=== PATIENT | male | born 1945 | race Caucasian/White ===

== ENCOUNTER 2017-03-03 14:18 | Inpatient (IN) | payer MEDICARE, MEDICAID ==
[2017-03-03 15:46] LABS: EOS # 0.2 K/uL (0.0-0.7); LYMPH # 1.1 K/uL (1.0-4.3); MONO # 0.5 K/uL (0.0-0.8)
[2017-03-03 15:49] LABS: BASO # 0.1 K/uL (0.0-0.2); BASO % 1.1 % (0.0-2.0); EOS % 3.5 % (0.0-4.0); LYMPH % 15.9 % (20.0-40.0); MEAN CORPUSCULAR HEMOGLOBIN 16.9 pg (27.0-31.0); MEAN CORPUSCULAR HGB CONC 29.6 g/dL (33.0-37.0); MEAN PLATELET VOLUME 8.4 fL (7.2-11.7); MONO % 8.1 % (0.0-10.0); NEUT # 4.8 K/uL (1.8-7.0); NEUT % 71.4 % (50.0-75.0); RBC 3.35 Mil/uL (4.40-5.90); RED CELL DISTRIBUTION WIDTH 19.4 % (11.5-14.5); WHITE BLOOD COUNT 6.8 K/uL (4.8-10.8)
[2017-03-03 15:51] LABS: HEMOGLOBIN 5.7 g/dL (12.0-18.0)
[2017-03-03 15:52] LABS: MEAN CELL VOLUME 57.3 fL (80.0-94.0); PROTHROMBIN TIME 11.5 SECONDS (9.7-12.2)
[2017-03-03 16:02] LABS: ALBUMIN 3.2 g/dL (3.5-5.0)
[2017-03-03 16:06] LABS: CALCIUM 8.2 mg/dl (8.6-10.4)
--- NOTE | 2017-03-03 16:53 | C.PDOC ---
History Of Present Illness Pt was sent in by his PMD Dr. Huizar due to low hemoglobin. Time Seen by Provider: 03/03/17 14:42 Chief Complaint (Nursing): Abnormal Labs History Per: Patient, Fashion Designer, Other (PMD) History/Exam Limitations: language barrier Onset/Duration Of Symptoms: Days (about 3-4 weeks) Current Symptoms Are (Timing): Still Present Possible Causative Factor(s): Lightheaded W/Exertion Fall Associated With With Symptoms: No Severity: Moderate - Symptoms Of CVA Recent Head Trauma: No Past Medical History Reviewed: Historical Data, Nursing Documentation, Vital Signs Vital Signs: Last Vital Signs Temp 97.7 F 03/03/17 14:38 Pulse 61 03/03/17 14:38 Resp 17 03/03/17 14:38 BP 167/77 H 03/03/17 14:38 Pulse Ox 100 03/03/17 14:38 - Medical History PMH: HTN Surgical History: No Surg Hx Family History: States: Unknown Family Hx - Social History Hx Alcohol Use: No Hx Substance Use: No Review Of Systems Except As Marked, All Systems Reviewed And Found Negative. Constitutional: Negative for: Fever Cardiovascular: Positive for: Light Headedness. Negative for: Chest Pain Respiratory: Positive for: SOB with Excertion (?). Negative for: Shortness of Breath Gastrointestinal: Negative for: Vomiting, Abdominal Pain, Melena, Hematochezia, Hematemesis Genitourinary: Negative for: Hematuria Musculoskeletal: Negative for: Neck Pain Skin: Negative for: Rash Neurological: Negative for: Weakness, Numbness, Seizures Physical Exam - Physical Exam Appears: Non-toxic, No Acute Distress Skin: Warm, Dry, Pale Head: Atraumatic, Normacephalic Eye(s): bilateral: PERRL, EOMI, Conjunctiva Pale Neck: Normal ROM, Supple Cardiovascular: Rhythm Regular Respiratory: Normal Breath Sounds, No Accessory Muscle Use Gastrointestinal/Abdominal: Soft, No Tenderness Rectal: Heme Positive, Other (Brown stool) Back: No CVA Tenderness Extremity: Normal ROM Neurological/Psych: Oriented x3, Normal Motor, Normal Sensation ED Course And Treatment - Laboratory Results Result Diagrams: 03/03/17 15:38 03/03/17 15:38 Lab Interpretation: Abnormal Interpretation Of Abnormal: Severe anemia ECG: Interpreted By Me, Viewed By Me ECG Rhythm: Sinus Rhythm, Nonspecific Changes Interpretation Of ECG: LVH Rate From EC O2 Sat by Pulse Oximetry: 100 Pulse Ox Interpretation: Normal Disposition Discussed With : Joey Huizar Comment: He saw pt in the ED and admitted to his service. Doctor Will See Patient In The: ED Counseled Patient/Family Regarding: Studies Performed, Diagnosis - Disposition Disposition: HOSPITALIZED Disposition Time: 16:54 Condition: FAIR - Clinical Impression Clinical Impression: Severe anemia
--- NOTE | 2017-03-03 18:17 | CP.PCM.HP ---
History of Present Illness - History of Present Illness History of Present Illness: A 71 year old A[place] male was sent by his PMD on 03/03/17 for low hemoglobin (5.8 ) from a regular blood test which was done yesterday at his office. He has a history of hypertension, and takes medicines for it. He denies melena or blood in stool. He has mild shortness of breath on exertion. Present on Admission - Present on Admission Any Indicators Present on Admission: No History of DVT/PE: No History of Uncontrolled Diabetes: No Urinary Catheter: No Decubitus Ulcer Present: No Review of Systems - Constitutional Constitutional: As Per HPI - Respiratory Respiratory: As Per HPI - Gastrointestinal Gastrointestinal: As Per HPI - Neurological Neurological: As Per HPI - Psychiatric Psychiatric: As Per HPI - Endocrine Endocrine: As Per HPI Past Patient History - Past Social History Smoking Status: Current Some Days Smoker - CARDIAC Hx Cardiac Disorders: No Hx Angina: No Hx Atrial Fibrillation: No Hx Cardia Arrhythmia: No Hx Circulatory Problems: No Hx Congestive Heart Failure: No Hx Heart Attack: No Hx Heart Murmur: No Hx Heart Transplant: No Hx Hypercholesterolemia: No Hx Hypertension: Yes Hx Hypotension: No Hx Internal Defibrillator: No Hx Mitral Valve Prolapse: No Hx Pacemaker: No Hx Peripheral Edema: No Hx Peripheral Vascular Disease: No - ENDOCRINE/METABOLIC Hx Diabetes Mellitus Type 2: Yes - PSYCHIATRIC Hx Substance Use: No - SURGICAL HISTORY Hx Surgeries: No Meds Allergies/Adverse Reactions: Allergies Allergy/AdvReac Type Severity Reaction Status Date / Time No Known Allergies Allergy Unverified 03/03/17 14:59 Physical Exam - Constitutional Appears: Non-toxic - Head Exam Head Exam: ATRAUMATIC, NORMAL INSPECTION - Eye Exam Eye Exam: Normal appearance - Neck Exam Neck exam: Positive for: Full Rom, Normal Inspection (no palpable lymph node) - Respiratory Exam Respiratory Exam: Clear to Auscultation Bilateral, NORMAL BREATHING PATTERN - Cardiovascular Exam Cardiovascular Exam: REGULAR RHYTHM - GI/Abdominal Exam GI & Abdominal Exam: Normal Bowel Sounds, Soft (no tenderness) - Extremities Exam Extremities exam: Positive for: normal inspection - Back Exam Back exam: NORMAL INSPECTION Results - Vital Signs Recent Vital Signs: Last Vital Signs Temp 97.7 F 03/03/17 14:38 Pulse 61 03/03/17 14:38 Resp 17 03/03/17 14:38 BP 167/77 H 03/03/17 14:38 Pulse Ox 100 03/03/17 16:55 - Labs Result Diagrams: 03/03/17 15:38 03/03/17 15:38 Assessment & Plan - Assessment and Plan (Free Text) Assessment: A 71 year old male with history of hypertension, BPH came for low hemoglobn of 5.7 anemia R/O iron deficiency anemia as per ER doctor, stool Guiac was positive. Plan: transfuse slowly 2 units of PRBC iv protonix anemia work up GI consult - Date & Time Date: 03/03/17 Time: 18:22 Decision To Admit - Pt Status Changed To: Hospital Disposition Of: Inpatient - Admit Certification Admit to Inpatient:: After my assessment, the patient will require hospitalization for at least two midnights. This is because of the severity of symptoms shown, intensity of services needed, and/or the medical risk in this patient being treated as an outpatient. - InPatient: Physician Admission Certification:: as ordered - . Bed Request Type: Regular Admitting Physician: Kailey Huizar
--- NOTE | 2017-03-03 18:43 | RAD ---
HISTORY: Anemia COMPARISON: No prior. FINDINGS: LUNGS: No pulmonary infiltrate. Roughly symmetric rounded nodular density at the lung bases consistent with nipple shadows. Consider repeat with nipple markers to exclude bibasilar pulmonary nodules. PLEURA: No significant pleural effusion identified, no pneumothorax apparent. CARDIOVASCULAR: Normal. OSSEOUS STRUCTURES: No significant abnormalities. VISUALIZED UPPER ABDOMEN: Normal. OTHER FINDINGS: None. IMPRESSION: No infiltrate. Bibasilar pulmonary nodules, likely nipple shadows. Consider repeat frontal chest radiograph with nipple markers.
--- NOTE | 2017-03-04 07:37 | CP.PCM.PN ---
Subjective - Date & Time of Evaluation Date of Evaluation: 03/04/17 Time of Evaluation: 07:34 - Subjective Subjective: feels better no dizziness no chest pain Objective - Vital Signs/Intake and Output Vital Signs (last 24 hours): Temp Pulse Resp BP Pulse Ox 98.4 F 65 18 154/83 H 96 03/04/17 02:40 03/04/17 02:40 03/04/17 02:15 03/04/17 02:40 03/04/17 02:15 Intake and Output: 03/04/17 03/04/17 06:59 18:59 Intake Total 475 Balance 475 - Medications Medications: Current Medications Acetaminophen (Tylenol 325mg Tab) 650 mg PO Q6 PRN PRN Reason: Pain, moderate (4-7) Amlodipine Besylate (Norvasc) 5 mg PO DAILY [facility] Pantoprazole Sodium (Protonix Inj) 40 mg IVP DAILY [facility] Pneumococcal Polyvalent Vaccine (Pneumovax 23 Vaccine) 0.5 ml IM .ONCE ONE Stop: 03/04/17 10:01 - Labs Labs: PT 11.5 SECONDS (9.7-12.2) 03/03/17 15:38 INR 1.0 03/03/17 15:38 APTT 32 SECONDS (21-34) 03/03/17 15:38 - Constitutional Appears: Non-toxic - Head Exam Head Exam: ATRAUMATIC - Respiratory Exam Respiratory Exam: NORMAL BREATHING PATTERN - Cardiovascular Exam Cardiovascular Exam: REGULAR RHYTHM - GI/Abdominal Exam GI & Abdominal Exam: Soft, Normal Bowel Sounds - Extremities Exam Extremities Exam: Normal Inspection Assessment and Plan - Assessment and Plan (Free Text) Assessment: A 71 year old male with mild diabetes, hypertension came with severe anemia. stool occult blood is positive yesterday he has 2 units of pRBC follow up CBC is pending Plan: 1) GI consult for possible endoscopy. 2) anemia work up. 3) continue iv protonix 4) continue his home medicines.
[2017-03-04 08:48] LABS: IRON 28 ug/dL (49-181)
[2017-03-04 09:07] LABS: BASO # 0.1 K/uL (0.0-0.2); EOS # 0.3 K/uL (0.0-0.7); EOS % 3.5 % (0.0-4.0); LYMPH # 1.4 K/uL (1.0-4.3); LYMPH % 18.3 % (20.0-40.0); MEAN CORPUSCULAR HEMOGLOBIN 19.8 pg (27.0-31.0); MEAN CORPUSCULAR HGB CONC 31.4 g/dL (33.0-37.0); MEAN PLATELET VOLUME 8.4 fL (7.2-11.7); MONO # 0.6 K/uL (0.0-0.8); MONO % 7.9 % (0.0-10.0); NEUT # 5.4 K/uL (1.8-7.0); NEUT % 69.3 % (50.0-75.0); RBC 3.88 Mil/uL (4.40-5.90); RED CELL DISTRIBUTION WIDTH 26.2 % (11.5-14.5); WHITE BLOOD COUNT 7.8 K/uL (4.8-10.8)
[2017-03-04 09:07] LABS: TOTAL IRON BINDING CAPACITY 351 ug/dL (250-450)
[2017-03-04 09:09] LABS: HEMOGLOBIN 7.7 g/dL (12.0-18.0)
[2017-03-04 09:26] LABS: FERRITIN 6.9 ng/mL
[2017-03-04 09:56] LABS: FOLATE 6.5 ng/mL
[2017-03-04] MEDS ORDERED: Pneumococcal 23-Valent Vaccine IM ONE (10:00)
--- NOTE | 2017-03-04 11:29 | CARD ---
APPROVED REPORT EKG Measurement Heart [id number] SD [id number] [id number] <Conclusion> Sinus bradycardia Left ventricular hypertrophy with repolarization abnormality Abnormal ECG
[2017-03-04] MEDS ORDERED: Potassium Chloride 20 mEq ER Tab PO ONE (11:45)
[2017-03-04] MEDS: (Novolog) Insulin Aspart, Recombinant 100 u/ml 10 ml vial SC SCH (17:40)
[2017-03-05 07:28] LABS: HEMOGLOBIN 8.8 g/dL (12.0-18.0); MEAN CORPUSCULAR HEMOGLOBIN 20.6 pg (27.0-31.0); MEAN CORPUSCULAR HGB CONC 31.7 g/dL (33.0-37.0); MEAN PLATELET VOLUME 8.3 fL (7.2-11.7); RBC 4.24 Mil/uL (4.40-5.90); RED CELL DISTRIBUTION WIDTH 28.2 % (11.5-14.5); WHITE BLOOD COUNT 11.3 K/uL (4.8-10.8)
[2017-03-05] MEDS: (Novolog) Insulin Aspart, Recombinant 100 u/ml 10 ml vial SC SCH ×2 (07:30→16:30)
[2017-03-05] MEDS ORDERED: Etomidate 20 mg/10ml Inj IV ONE (07:31)
[2017-03-05] MEDS ORDERED: Propofol 10 mg/ml Inj (20 ML) ONE (07:31)
--- NOTE | 2017-03-05 08:22 | CP.PCM.PN ---
Subjective - Date & Time of Evaluation Date of Evaluation: 03/05/17 Time of Evaluation: 08:18 - Subjective Subjective: feels better patient is in the recovery room after an EGD this morning denying any abdominal pain, melena or blood in stool Objective - Vital Signs/Intake and Output Vital Signs (last 24 hours): Temp Pulse Resp BP Pulse Ox 98.9 F 61 11 L 127/62 100 03/05/17 07:45 03/05/17 07:45 03/05/17 07:45 03/05/17 07:45 03/05/17 07:45 Intake and Output: 03/05/17 03/05/17 06:59 18:59 Intake Total 30 250 Balance 30 250 - Medications Medications: Current Medications Acetaminophen (Tylenol 325mg Tab) 650 mg PO Q6 PRN PRN Reason: Pain, moderate (4-7) Amlodipine Besylate (Norvasc) 5 mg PO DAILY [facility] Last Admin: 03/05/17 05:09 Dose: 5 mg Bisacodyl (Dulcolax) 10 mg PO ONCE ONE Stop: 03/05/17 17:01 Insulin Aspart (Novolog) 0 unit SC BIDAC [facility] PRN Reason: Protocol Last Admin: 03/04/17 17:40 Dose: Not Given Lisinopril (Zestril) 10 mg PO DAILY [facility] Last Admin: 03/05/17 05:10 Dose: 10 mg Metoclopramide HCl (Reglan) 5 mg IVP Q6 [facility] Pantoprazole Sodium (Protonix Inj) 40 mg IVP DAILY [facility] Last Admin: 03/04/17 09:35 Dose: 40 mg Pneumococcal Polyvalent Vaccine (Pneumovax 23 Vaccine) 0.5 ml IM .ONCE ONE Stop: 03/06/17 10:01 Polyethylene Glycol/Electrolytes (Golytely) 4,000 ml PO ONCE ONE Stop: 03/05/17 11:01 Sucralfate (Carafate Oral Susp) 1 gm PO ACBHS [facility] - Labs Labs: 03/05/17 07:07 PT 11.5 SECONDS (9.7-12.2) 03/03/17 15:38 INR 1.0 03/03/17 15:38 APTT 32 SECONDS (21-34) 03/03/17 15:38 - Constitutional Appears: Non-toxic - Neck Exam Neck Exam: Normal Inspection (no supraclavicular lymph node ) - Respiratory Exam Respiratory Exam: NORMAL BREATHING PATTERN - Cardiovascular Exam Cardiovascular Exam: REGULAR RHYTHM - GI/Abdominal Exam GI & Abdominal Exam: Normal Bowel Sounds Assessment and Plan - Assessment and Plan (Free Text) Assessment: A 71 year old male who came for severe anemia. stool Guiac positive. this morning, as per the GI doctor, Dr. Guzman he found a huge mass from body to antrum. high CEA, gastric cancer hemoglobin went up to 8.8 Plan: gastric cancer work up. possible colonoscopy tomorrow (he does not want to have it though). wait for a biopsy result CAT scan of abdomen oncology sugery consult will discuss with family
[2017-03-05] MEDS ORDERED: Potassium Chloride 20 mEq ER Tab PO ONE ×2 (09:24→10:45)
[2017-03-05] MEDS: Pantoprazole 40 mg EC Tab PO SCH (10:56)
[2017-03-05] MEDS ORDERED: Peg-Electrolyte Oral Soln 4L (Golytely) PO ONE (11:00)
[2017-03-05 12:06] LABS: BASO # 0.1 K/uL (0.0-0.2); BASO % 0.7 % (0.0-2.0); EOS # 0.2 K/uL (0.0-0.7); EOS % 2.6 % (0.0-4.0); LYMPH # 1.2 K/uL (1.0-4.3); LYMPH % 12.9 % (20.0-40.0); MEAN CELL VOLUME 64.8 fL (80.0-94.0); MEAN CORPUSCULAR HEMOGLOBIN 20.2 pg (27.0-31.0); MEAN CORPUSCULAR HGB CONC 31.2 g/dL (33.0-37.0); MEAN PLATELET VOLUME 8.3 fL (7.2-11.7); MONO # 0.9 K/uL (0.0-0.8); NEUT # 7.2 K/uL (1.8-7.0); NEUT % 74.8 % (50.0-75.0); RBC 4.46 Mil/uL (4.40-5.90); RED CELL DISTRIBUTION WIDTH 28.5 % (11.5-14.5); WHITE BLOOD COUNT 9.7 K/uL (4.8-10.8)
[2017-03-05] MEDS ORDERED: Bisacodyl 5mg EC Tab PO ONE (17:00)
--- NOTE | 2017-03-05 19:06 | CP.PCM.CON ---
History of Present Illness - History of Present Illness History of Present Illness: 71 year old male with a history of HTN, admitted with anemia, found to have a gastric mass. The patient was found to be anemic by his PMD and told to come to the ER. He is s/p PRBC transfusion and EGD showing gastric mass. He reports to feeling better. He denies pain. He does note to slow weightloss over 2-3 years. Past medical history: HTN Past surgical history: None Family history: Denies hematologic and oncologic problems Social history: Smokes 1ppd x 45 years, social ETOH, denies illicit drug use. Allergies: NKA Review of systems: All remaining review of systems including HEENT, cardiovascular, respiratory, gastrointestinal, genitourinary, musculoskeletal, dermatologic, neurologic, and psychiatric are negative unless mentioned in the HPI. Past Patient History - Past Social History Smoking Status: Current Some Days Smoker - CARDIAC Hx Cardiac Disorders: No Hx Angina: No Hx Atrial Fibrillation: No Hx Cardia Arrhythmia: No Hx Circulatory Problems: No Hx Congestive Heart Failure: No Hx Heart Attack: No Hx Heart Murmur: No Hx Heart Transplant: No Hx Hypercholesterolemia: No Hx Hypertension: Yes Hx Hypotension: No Hx Internal Defibrillator: No Hx Mitral Valve Prolapse: No Hx Pacemaker: No Hx Peripheral Edema: No Hx Peripheral Vascular Disease: No - ENDOCRINE/METABOLIC Hx Diabetes Mellitus Type 2: Yes - MUSCULOSKELETAL/RHEUMATOLOGICAL Hx Falls: Yes - GENITOURINARY/GYNECOLOGICAL Hx Prostate Problems: Yes - PSYCHIATRIC Hx Substance Use: No - SURGICAL HISTORY Hx Surgeries: No Meds Allergies/Adverse Reactions: Allergies Allergy/AdvReac Type Severity Reaction Status Date / Time No Known Allergies Allergy Unverified 03/03/17 14:59 - Medications Medications: Current Medications Acetaminophen (Tylenol 325mg Tab) 650 mg PO Q6 PRN PRN Reason: Pain, moderate (4-7) Amlodipine Besylate (Norvasc) 10 mg PO DAILY [facility] Ferric Sodium Gluconate Complex (Ferrlecit) 125 mg IVPB DAILY [facility] Stop: 03/14/17 10:01 Insulin Aspart (Novolog) 0 unit SC BIDAC [facility] PRN Reason: Protocol Last Admin: 03/04/17 17:40 Dose: Not Given Lisinopril (Zestril) 10 mg PO DAILY [facility] Last Admin: 03/05/17 10:54 Dose: 10 mg Metoclopramide HCl (Reglan) 5 mg IVP Q6 [facility] Last Admin: 03/05/17 17:42 Dose: 5 mg Pantoprazole Sodium (Protonix Ec Tab) 40 mg PO DAILY [facility] Last Admin: 03/05/17 10:56 Dose: 40 mg Pneumococcal Polyvalent Vaccine (Pneumovax 23 Vaccine) 0.5 ml IM .ONCE ONE Stop: 03/06/17 10:01 Sucralfate (Carafate Oral Susp) 1 gm PO ACBHS [facility] Physical Exam - Head Exam Head Exam: ATRAUMATIC - Eye Exam Eye Exam: Normal appearance - ENT Exam ENT Exam: Mucous Membranes Dry - Respiratory Exam Respiratory Exam: NORMAL BREATHING PATTERN - Cardiovascular Exam Cardiovascular Exam: +S1, +S2 - GI/Abdominal Exam GI & Abdominal Exam: Normal Bowel Sounds - Extremities Exam Extremities exam: Positive for: normal inspection - Neurological Exam Neurological exam: Oriented x3 - Psychiatric Exam Psychiatric exam: Normal Affect, Normal Mood - Skin Skin Exam: Warm Results - Vital Signs Recent Vital Signs: Last Vital Signs Temp 98 F 03/05/17 16:00 Pulse 62 03/05/17 16:00 Resp 20 03/05/17 16:00 BP 164/83 H 03/05/17 16:00 Pulse Ox 100 03/05/17 16:00 - Labs Result Diagrams: 03/05/17 11:55 03/03/17 15:38 Labs: Laboratory Results - last 24 hr 03/04/17 03/05/17 03/05/17 21:32 06:26 07:07 WBC 11.3 H RBC 4.24 L Hgb 8.8 L Hct 27.6 L MCV 65.0 L D MCH 20.6 L MCHC 31.7 L RDW 28.2 H Plt Count 258 MPV 8.3 Neut % (Auto) Lymph % (Auto) [place] % (Auto) Eos % (Auto) Baso % (Auto) Neut # Lymph # [place] # Eos # Baso # POC Glucose (mg/dL) 125 H 131 H 03/05/17 11:55 WBC 9.7 RBC 4.46 Hgb 9.0 L Hct 28.9 L MCV 64.8 L MCH 20.2 L MCHC 31.2 L RDW 28.5 H Plt Count 263 MPV 8.3 Neut % (Auto) 74.8 Lymph % (Auto) 12.9 L [place] % (Auto) 9.0 Eos % (Auto) 2.6 Baso % (Auto) 0.7 Neut # 7.2 H Lymph # 1.2 [place] # 0.9 H Eos # 0.2 Baso # 0.1 POC Glucose (mg/dL) Assessment & Plan (1) Anemia Assessment and Plan: iron and b12 deficiency will start IV iron s/p transfusion support Status: Acute (2) Gastric mass Assessment and Plan: likely malignancy will order CT C/A/P for staging surgical evaluation further treatment recommendations based on the above Thank you for this interesting consult. Status: Acute
[2017-03-05] MEDS: Sucralfate 1 gm/10 ml Oral Susp UD PO SCH (21:38)
[2017-03-06] MEDS ORDERED: Iohexol 240 (50 ml) PO ONE ×2 (08:15→16:30)
--- NOTE | 2017-03-06 08:16 | CP.PCM.PN ---
Subjective - Date & Time of Evaluation Date of Evaluation: 03/06/17 Time of Evaluation: 08:13 - Subjective Subjective: feels the same yesterday he had bowel cleansing, which was hard for him. Objective - Vital Signs/Intake and Output Vital Signs (last 24 hours): Temp Pulse Resp BP Pulse Ox 97.8 F 80 20 154/81 H 97 03/06/17 07:36 03/06/17 07:36 03/06/17 07:36 03/06/17 07:36 03/06/17 07:36 Intake and Output: 03/06/17 03/06/17 06:59 18:59 Intake Total 0 Balance 0 - Medications Medications: Current Medications Acetaminophen (Tylenol 325mg Tab) 650 mg PO Q6 PRN PRN Reason: Pain, moderate (4-7) Amlodipine Besylate (Norvasc) 10 mg PO DAILY [facility] Ferric Sodium Gluconate Complex (Ferrlecit) 125 mg IVPB DAILY [facility] Stop: 03/13/17 10:01 Insulin Aspart (Novolog) 0 unit SC BIDAC [facility] PRN Reason: Protocol Last Admin: 03/05/17 16:30 Dose: Not Given Lisinopril (Zestril) 10 mg PO DAILY [facility] Last Admin: 03/05/17 10:54 Dose: 10 mg Metoclopramide HCl (Reglan) 5 mg IVP Q6 [facility] Last Admin: 03/06/17 00:15 Dose: Not Given Pantoprazole Sodium (Protonix Ec Tab) 40 mg PO DAILY [facility] Last Admin: 03/05/17 10:56 Dose: 40 mg Pneumococcal Polyvalent Vaccine (Pneumovax 23 Vaccine) 0.5 ml IM .ONCE ONE Stop: 03/06/17 10:01 Sucralfate (Carafate Oral Susp) 1 gm PO ACBHS [facility] Last Admin: 03/05/17 21:38 Dose: 1 gm - Labs Labs: 03/05/17 11:55 PT 11.5 SECONDS (9.7-12.2) 03/03/17 15:38 INR 1.0 03/03/17 15:38 APTT 32 SECONDS (21-34) 03/03/17 15:38 - Constitutional Appears: Non-toxic - Head Exam Head Exam: NORMAL INSPECTION - Respiratory Exam Respiratory Exam: NORMAL BREATHING PATTERN - Cardiovascular Exam Cardiovascular Exam: REGULAR RHYTHM - GI/Abdominal Exam GI & Abdominal Exam: Normal Bowel Sounds Assessment and Plan - Assessment and Plan (Free Text) Assessment: anemia due to maligant disease iron deficiency gastric mass Plan: today colonoscopy CAT scan of abdomen and chest with iv contrast surgery consult wait for pathology
[2017-03-06] MEDS: Sucralfate 1 gm/10 ml Oral Susp UD PO SCH ×2 (08:22→22:38)
[2017-03-06] MEDS: (Novolog) Insulin Aspart, Recombinant 100 u/ml 10 ml vial SC SCH ×2 (08:24→18:16)
--- NOTE | 2017-03-06 09:52 | CP.PCM.CON ---
<Juanito Franco - Last Filed: 03/06/17 09:45> History of Present Illness - History of Present Illness History of Present Illness: SURGERY CONSULT NOTE FOR DR. SCHMIDT 71M presents to [facility] (formerly [facility]) after being sent by his primary Dr. Huizar. Patient was sent to hospital for low hemoglobin in the 5s from previous blood work. Patient currently denies abdominal pain, states he does vomit once in a while, non bloody. He states he has not been having any problems with bowel movement. Patient underwent EGD by GI Dr. Guzman, who discovered a malignant Gastric mass which was biopsied. PMH: HTN, DM PSH: denies Allergies: NKDA Past Patient History - Past Social History Smoking Status: Current Some Days Smoker - CARDIAC Hx Cardiac Disorders: No Hx Angina: No Hx Atrial Fibrillation: No Hx Cardia Arrhythmia: No Hx Circulatory Problems: No Hx Congestive Heart Failure: No Hx Heart Attack: No Hx Heart Murmur: No Hx Heart Transplant: No Hx Hypercholesterolemia: No Hx Hypertension: Yes Hx Hypotension: No Hx Internal Defibrillator: No Hx Mitral Valve Prolapse: No Hx Pacemaker: No Hx Peripheral Edema: No Hx Peripheral Vascular Disease: No - ENDOCRINE/METABOLIC Hx Diabetes Mellitus Type 2: Yes - MUSCULOSKELETAL/RHEUMATOLOGICAL Hx Falls: Yes - GENITOURINARY/GYNECOLOGICAL Hx Prostate Problems: Yes - PSYCHIATRIC Hx Substance Use: No - SURGICAL HISTORY Hx Surgeries: No Meds Allergies/Adverse Reactions: Allergies Allergy/AdvReac Type Severity Reaction Status Date / Time No Known Allergies Allergy Unverified 03/03/17 14:59 - Medications Medications: Current Medications Acetaminophen (Tylenol 325mg Tab) 650 mg PO Q6 PRN PRN Reason: Pain, moderate (4-7) Amlodipine Besylate (Norvasc) 10 mg PO DAILY [facility] Ferric Sodium Gluconate Complex (Ferrlecit) 125 mg IVPB DAILY [facility] Stop: 03/13/17 10:01 Insulin Aspart (Novolog) 0 unit SC BIDAC [facility] PRN Reason: Protocol Last Admin: 03/06/17 08:24 Dose: Not Given Lisinopril (Zestril) 10 mg PO DAILY [facility] Last Admin: 03/05/17 10:54 Dose: 10 mg Metoclopramide HCl (Reglan) 5 mg IVP Q6 [facility] Last Admin: 03/06/17 00:15 Dose: Not Given Pantoprazole Sodium (Protonix Ec Tab) 40 mg PO DAILY [facility] Last Admin: 03/05/17 10:56 Dose: 40 mg Pneumococcal Polyvalent Vaccine (Pneumovax 23 Vaccine) 0.5 ml IM .ONCE ONE Stop: 03/06/17 10:01 Sucralfate (Carafate Oral Susp) 1 gm PO [facility] Last Admin: 03/06/17 08:22 Dose: 1 gm Physical Exam - Constitutional Appears: Non-toxic, No Acute Distress Additional comments: very thin, ribs showing. - Head Exam Head Exam: ATRAUMATIC - Eye Exam Eye Exam: EOMI, PERRL - ENT Exam ENT Exam: Mucous Membranes Moist - Respiratory Exam Respiratory Exam: Clear to Auscultation Bilateral, NORMAL BREATHING PATTERN - Cardiovascular Exam Cardiovascular Exam: REGULAR RHYTHM, +S1, +S2 - GI/Abdominal Exam GI & Abdominal Exam: Soft. absent: Distended, Firm, Guarding, Rebound, Rigid, Tenderness - Extremities Exam Extremities exam: Negative for: pedal edema, tenderness - Back Exam Back exam: absent: tenderness - Neurological Exam Neurological exam: Alert, Oriented x3 - Psychiatric Exam Psychiatric exam: Normal Affect, Normal Mood - Skin Skin Exam: Dry, Intact, Normal Color, Warm Results - Vital Signs Recent Vital Signs: Last Vital Signs Temp 97.8 F 03/06/17 07:36 Pulse 80 03/06/17 07:36 Resp 20 03/06/17 07:36 BP 154/81 H 03/06/17 07:36 Pulse Ox 97 03/06/17 07:36 - Labs Result Diagrams: 03/05/17 11:55 03/03/17 15:38 Labs: Laboratory Results - last 24 hr 03/05/17 03/05/17 03/06/17 06:26 11:55 07:09 WBC 9.7 RBC 4.46 Hgb 9.0 L Hct 28.9 L MCV 64.8 L MCH 20.2 L MCHC 31.2 L RDW 28.5 H Plt Count 263 MPV 8.3 Neut % (Auto) 74.8 Lymph % (Auto) 12.9 L [place] % (Auto) 9.0 Eos % (Auto) 2.6 Baso % (Auto) 0.7 Neut # 7.2 H Lymph # 1.2 [place] # 0.9 H Eos # 0.2 Baso # 0.1 POC Glucose (mg/dL) 131 H 109 Assessment & Plan - Assessment and Plan (Free Text) Assessment: 71M with Gastric cancer Plan: - CT chest/abd/pelvis today for staging - Patient to undergo a colonoscopy with GI - Will follow up CT results Further recs discuss with Dr. Mindy Franco, PGY1 <Andre Schmidt - Last Filed: 03/15/17 16:54> Results - Vital Signs Recent Vital Signs: Last Vital Signs Temp 97.8 F 03/09/17 08:00 Pulse 70 03/09/17 08:00 Resp 20 03/09/17 08:00 BP 163/75 H 03/09/17 00:27 Pulse Ox 99 03/09/17 08:00 - Labs Result Diagrams: 03/07/17 07:26 03/07/17 07:26 Attending/Attestation - Attestation I have personally seen and examined this patient.: Yes I have fully participated in the care of the patient.: Yes I have reviewed all pertinent clinical information: Yes Notes (Text): 03/15/17 16:54 Pt was seen and examined at bedside on 03/06/17 Agree with above note and assessment Pt with Gastric Cancer, Stage 4 Oncology consult We will f.u Plan d/w pt and Primary team in detail Risk and benefit explained in detail.
[2017-03-06] MEDS ORDERED: Pneumococcal 23-Valent Vaccine IM ONE (10:00)
[2017-03-06] MEDS ORDERED: Propofol 10 mg/ml Inj (20 ML) ONE (10:22)
[2017-03-06] MEDS: Ferric Sodium Gluconat Complex 62.5 mg/5 ml Vial IVPB SCH (12:04)
[2017-03-06] MEDS: Pantoprazole 40 mg EC Tab PO SCH (12:05)
[2017-03-06 14:00] LABS: BASO # 0.1 K/uL (0.0-0.2); BASO % 1.1 % (0.0-2.0); EOS # 0.3 K/uL (0.0-0.7); EOS % 4.8 % (0.0-4.0); LYMPH # 1.5 K/uL (1.0-4.3); LYMPH % 24.7 % (20.0-40.0); MEAN CORPUSCULAR HEMOGLOBIN 20.4 pg (27.0-31.0); MEAN CORPUSCULAR HGB CONC 30.8 g/dL (33.0-37.0); MEAN PLATELET VOLUME 8.3 fL (7.2-11.7); MONO # 0.6 K/uL (0.0-0.8); MONO % 9.5 % (0.0-10.0); NEUT # 3.7 K/uL (1.8-7.0); NEUT % 59.9 % (50.0-75.0); RBC 4.41 Mil/uL (4.40-5.90); RED CELL DISTRIBUTION WIDTH 28.8 % (11.5-14.5); WHITE BLOOD COUNT 6.1 K/uL (4.8-10.8)
[2017-03-06 14:19] LABS: ALBUMIN 2.8 g/dL (3.5-5.0)
[2017-03-06 14:22] LABS: ALB/GLOB RATIO 0.9 (1.0-2.1); ALT/SGPT 14 U/L (21-72); AST/SGOT 12 U/L (17-59); BLOOD UREA NITROGEN 14 mg/dL (9-20); CALCIUM 8.1 mg/dl (8.6-10.4); GFR AFRICAN-AMERICAN > 60; GFR NON-AFRICAN AMERICAN 54
[2017-03-06] MEDS ORDERED: Potassium Chloride 20 mEq ER Tab PO STA (16:41)
[2017-03-06] MEDS ORDERED: Iohexol 350mg/ml 100 ML ONE (18:14)
--- NOTE | 2017-03-06 20:10 | CP.PCM.PN ---
Subjective - Date & Time of Evaluation Date of Evaluation: 03/06/17 Time of Evaluation: 18:00 - Subjective Subjective: No complaints path report shows gastric adenocarcinoma Objective - Vital Signs/Intake and Output Vital Signs (last 24 hours): Temp Pulse Resp BP Pulse Ox 97.9 F 64 20 160/84 H 98 03/06/17 15:00 03/06/17 15:00 03/06/17 15:00 03/06/17 18:46 03/06/17 15:00 Intake and Output: 03/06/17 03/07/17 18:59 06:59 Intake Total 650 Balance 650 - Medications Medications: Current Medications Acetaminophen (Tylenol 325mg Tab) 650 mg PO Q6 PRN PRN Reason: Pain, moderate (4-7) Amlodipine Besylate (Norvasc) 10 mg PO DAILY [facility] Last Admin: 03/06/17 12:16 Dose: 10 mg Ferric Sodium Gluconate Complex (Ferrlecit) 125 mg IVPB DAILY [facility] Stop: 03/13/17 10:01 Last Admin: 03/06/17 12:04 Dose: 125 mg Insulin Aspart (Novolog) 0 unit SC BIDAC [facility] PRN Reason: Protocol Last Admin: 03/06/17 18:16 Dose: Not Given Lisinopril (Zestril) 10 mg PO DAILY [facility] Last Admin: 03/06/17 12:06 Dose: 10 mg Metoclopramide HCl (Reglan) 5 mg IVP Q6 [facility] Last Admin: 03/06/17 18:46 Dose: 5 mg Metoprolol Tartrate (Lopressor) 25 mg PO BID [facility] Last Admin: 03/06/17 18:46 Dose: 25 mg Pantoprazole Sodium (Protonix Ec Tab) 40 mg PO DAILY [facility] Last Admin: 03/06/17 12:05 Dose: 40 mg Pneumococcal Polyvalent Vaccine (Pneumovax 23 Vaccine) 0.5 ml IM .ONCE ONE Stop: 03/07/17 10:01 Sucralfate (Carafate Oral Susp) 1 gm PO ACBHS [facility] Last Admin: 03/06/17 08:22 Dose: 1 gm - Labs Labs: 03/06/17 13:48 03/06/17 13:48 PT 11.5 SECONDS (9.7-12.2) 03/03/17 15:38 INR 1.0 03/03/17 15:38 APTT 32 SECONDS (21-34) 03/03/17 15:38 - Head Exam Head Exam: ATRAUMATIC - Eye Exam Eye Exam: Normal appearance - ENT Exam ENT Exam: Mucous Membranes Dry - Respiratory Exam Respiratory Exam: NORMAL BREATHING PATTERN - Cardiovascular Exam Cardiovascular Exam: +S1, +S2 - GI/Abdominal Exam GI & Abdominal Exam: Normal Bowel Sounds - Extremities Exam Extremities Exam: Normal Inspection - Neurological Exam Neurological Exam: Oriented x3 - Psychiatric Exam Psychiatric exam: Normal Affect, Normal Mood - Skin Skin Exam: Warm Assessment and Plan (1) Anemia Assessment & Plan: iron/b12 deficiency on IV iron s/p prbc transfusion Status: Acute (2) Gastric mass Assessment & Plan: gastric adenocarcinoma f/u staging CT scans and surgery f/u Status: Acute
--- NOTE | 2017-03-06 20:27 | CT ---
EXAM: CT Abdomen and Pelvis With Intravenous Contrast CLINICAL HISTORY: 71 years old, male; Signs and symptoms; Other: Anemia; Cough; Symptoms not specified; Additional info: Gastric mass staging TECHNIQUE: Axial computed tomography images of the abdomen and pelvis with intravenous contrast. This CT exam was performed using one or more of the following dose reduction techniques: automated exposure control, adjustment of the mA and/or kV according to patient size, and/or use of iterative reconstruction technique. Coronal and sagittal reformatted images were created and reviewed. CONTRAST: 100 mL of omnipaque 350 administered intravenously. COMPARISON: No relevant prior studies available. FINDINGS: Lower thorax: No acute findings. ABDOMEN: Liver: Unremarkable. No mass. Gallbladder and bile ducts: Unremarkable. No calcified stones. No ductal dilation. Pancreas: Unremarkable. No mass. No ductal dilation. Spleen: Unremarkable. No splenomegaly. Adrenals: There is nodular enlargement of the medial limb of both adrenal glands. Kidneys and ureters: Marked thickening is noted of the distal body of the stomach and the gastric antrum. This may represent the patient's known carcinoma There is a 1 cm low density lesion lower pole right kidney with a density measurement of 12 H. No hydronephrosis. Stomach and bowel: See above. Appendix: No findings to suggest acute appendicitis. PELVIS: Bladder: Unremarkable. No mass. Reproductive: The prostate measures 3.5 x 3.9 x 4.2 cm ABDOMEN and PELVIS: Intraperitoneal space: Unremarkable. No free air. No significant fluid collection. Bones/joints: No acute fracture. No dislocation. Soft tissues: Unremarkable. Vasculature: . Atherosclerotic disease is noted of the abdominal aorta. No abdominal aortic aneurysm. Lymph nodes: A low-density norah mass is noted in the region of the lesser sac/gastrohepatic ligament and measuring 1.9 x 2 x 3 cm. An enlarged periportal lymph node is present measuring 2 x 1.4 x 1.3 cm A necrotic lymph node is noted anterior to the pancreatic head measuring 2.5 x 3 x 2.8 cm. IMPRESSION: 1. Adenopathy noted in the gastrohepatic ligament, periportal and peripancreatic region likely representing metastatic disease. 2. Mural thickening noted of the distal body of the stomach and the gastric antrum likely representing the patient's known gastric carcinoma EXAM: CT Chest With Intravenous Contrast CLINICAL HISTORY: 71 years old, male; Signs and symptoms; Other: Anemia; Cough; Symptoms not specified; Additional info: Gastric mass staging TECHNIQUE: Axial computed tomography images of the chest with intravenous contrast. This CT exam was performed using one or more of the following dose reduction techniques: automated exposure control, adjustment of the mA and/or kV according to patient size, and/or use of iterative reconstruction technique. Coronal and sagittal reformatted images were created and reviewed. CONTRAST: 100 mL of omnipaque 350 administered intravenously. EXAM DATE/TIME: Exam ordered 03/06/2017 10:00 AM COMPARISON: No relevant prior studies available. FINDINGS: Lungs: A 2mm nodule is noted in the left upper lobe (series 5 image 42). Hypoventilatory changes are noted in the dependent portion of both lung bases. Pleural space: Unremarkable. No pneumothorax. No significant effusion. Heart: Unremarkable. No cardiomegaly. No significant pericardial effusion. Bones/joints: Unremarkable. No acute fracture. No dislocation. Soft tissues: Unremarkable. Vasculature: There is a focal ulcerated plaque noted at the level of the mid descending thoracic aorta. The descending thoracic aorta measures 3.5 cm in diameter at the point of ulceration. Lymph nodes: An enlarged periportal lymph node is noted measuring 2 x 1.4 x 1.3 cm . There is a necrotic lymph node in the gastrohepatic ligament measuring 2.2 cm in maximal diameter. IMPRESSION: 1. 2 mm left upper lobe pulmonary nodule. An optional follow-up CT at 12 months could be performed due to the high risk of malignancy. If unchanged, no further follow-up is necessary. 2. 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 Adenopathy noted in the periportal region and gastrohepatic ligament likely representing metastatic disease Images were attached to this report and are available at [email or web address]
[2017-03-07 07:43] LABS: BASO # 0.1 K/uL (0.0-0.2); EOS # 0.4 K/uL (0.0-0.7); EOS % 5.5 % (0.0-4.0); HEMOGLOBIN 9.7 g/dL (12.0-18.0); LYMPH # 1.9 K/uL (1.0-4.3); LYMPH % 22.9 % (20.0-40.0); MEAN CELL VOLUME 65.8 fL (80.0-94.0); MEAN CORPUSCULAR HEMOGLOBIN 20.9 pg (27.0-31.0); MEAN CORPUSCULAR HGB CONC 31.8 g/dL (33.0-37.0); MEAN PLATELET VOLUME 8.3 fL (7.2-11.7); MONO # 0.6 K/uL (0.0-0.8); MONO % 7.5 % (0.0-10.0); NEUT # 5.1 K/uL (1.8-7.0); NEUT % 63.1 % (50.0-75.0); RBC 4.64 Mil/uL (4.40-5.90); RED CELL DISTRIBUTION WIDTH 29.3 % (11.5-14.5); WHITE BLOOD COUNT 8.1 K/uL (4.8-10.8)
--- NOTE | 2017-03-07 07:50 | CP.PCM.PN ---
Subjective - Date & Time of Evaluation Date of Evaluation: 03/07/17 Time of Evaluation: 07:45 - Subjective Subjective: patient does not complain. He had a colonoscopy and a CT scan yesterday. Objective - Vital Signs/Intake and Output Vital Signs (last 24 hours): Temp Pulse Resp BP Pulse Ox 98.6 F 67 16 106/66 98 03/07/17 00:06 03/07/17 00:06 03/07/17 00:06 03/07/17 00:06 03/07/17 00:06 Intake and Output: 03/07/17 03/07/17 06:59 18:59 Intake Total 540 Balance 540 - Medications Medications: Current Medications Acetaminophen (Tylenol 325mg Tab) 650 mg PO Q6 PRN PRN Reason: Pain, moderate (4-7) Amlodipine Besylate (Norvasc) 10 mg PO DAILY [facility] Last Admin: 03/06/17 12:16 Dose: 10 mg Ferric Sodium Gluconate Complex (Ferrlecit) 125 mg IVPB DAILY [facility] Stop: 03/13/17 10:01 Last Admin: 03/06/17 12:04 Dose: 125 mg Insulin Aspart (Novolog) 0 unit SC BIDAC [facility] PRN Reason: Protocol Last Admin: 03/06/17 18:16 Dose: Not Given Lisinopril (Zestril) 10 mg PO DAILY [facility] Last Admin: 03/06/17 12:06 Dose: 10 mg Metoclopramide HCl (Reglan) 5 mg IVP Q6 [facility] Last Admin: 03/07/17 05:15 Dose: 5 mg Metoprolol Tartrate (Lopressor) 25 mg PO BID [facility] Last Admin: 03/06/17 18:46 Dose: 25 mg Pantoprazole Sodium (Protonix Ec Tab) 40 mg PO DAILY [facility] Last Admin: 03/06/17 12:05 Dose: 40 mg Pneumococcal Polyvalent Vaccine (Pneumovax 23 Vaccine) 0.5 ml IM .ONCE ONE Stop: 03/07/17 10:01 Sucralfate (Carafate Oral Susp) 1 gm PO ACBHS [facility] Last Admin: 03/06/17 22:38 Dose: Not Given - Labs Labs: 03/06/17 13:48 03/06/17 13:48 PT 11.5 SECONDS (9.7-12.2) 03/03/17 15:38 INR 1.0 03/03/17 15:38 APTT 32 SECONDS (21-34) 03/03/17 15:38 - Constitutional Appears: Non-toxic - Head Exam Head Exam: NORMAL INSPECTION - Neck Exam Neck Exam: Full ROM - Cardiovascular Exam Cardiovascular Exam: REGULAR RHYTHM - GI/Abdominal Exam GI & Abdominal Exam: Soft Assessment and Plan - Assessment and Plan (Free Text) Assessment: A 71 year old male who came with anemia anemia due to malignant disease, iron deficiency anemia due to chronic GI blood loss s/p blood transfusion today's hemoglobin was 9.7 gastric mass was found by an EGD pathology report showed invasive adenocarcinoma colonoscopy: internal hemorrhoid, mild colitis, fecal matter in cecum. CAT scan of chest and abdomen showed 2 mm left upper lobe pulmonary nodule, focal ulcerated plaque in the descending thoracic aorta, adenopathy in the andrae-portal lesion and gastro-hepatic ligament likely representing metastatic disease. hypertension Plan: surgery consult pending as per oncology.
[2017-03-07] MEDS: (Novolog) Insulin Aspart, Recombinant 100 u/ml 10 ml vial SC SCH (08:06)
[2017-03-07 08:09] LABS: GFR AFRICAN-AMERICAN > 60; GFR NON-AFRICAN AMERICAN > 60
[2017-03-07 08:10] LABS: BLOOD UREA NITROGEN 12 mg/dL (9-20); CALCIUM 8.4 mg/dl (8.6-10.4)
[2017-03-07] MEDS: Sucralfate 1 gm/10 ml Oral Susp UD PO SCH ×2 (08:50→23:00)
[2017-03-07 09:16] VITALS: RESP 20
[2017-03-07] MEDS ORDERED: Pneumococcal 23-Valent Vaccine IM ONE (10:00)
[2017-03-07] MEDS: Pantoprazole 40 mg EC Tab PO SCH (10:19)
[2017-03-07] MEDS: Ferric Sodium Gluconat Complex 62.5 mg/5 ml Vial IVPB SCH (10:39)
--- NOTE | 2017-03-07 21:35 | CP.PCM.PN ---
Subjective - Date & Time of Evaluation Date of Evaluation: 03/07/17 Time of Evaluation: 08:15 - Subjective Subjective: General sx progress note for Dr. Guillen-Radha Garcia, PGY-1 Pt S & E at bedside this AM. Pt without complaints overnight. Denies N/V/F/C, abdominal pain, chest pain, SOB. Tolerating diet. Objective - Vital Signs/Intake and Output Vital Signs (last 24 hours): Temp Pulse Resp BP Pulse Ox 97.9 F 61 20 156/84 H 97 03/07/17 16:00 03/07/17 16:00 03/07/17 16:00 03/07/17 16:00 03/07/17 16:00 - Medications Medications: Current Medications Acetaminophen (Tylenol 325mg Tab) 650 mg PO Q6 PRN PRN Reason: Pain, moderate (4-7) Amlodipine Besylate (Norvasc) 10 mg PO DAILY [facility] Last Admin: 03/07/17 10:25 Dose: 10 mg Ferric Sodium Gluconate Complex (Ferrlecit) 125 mg IVPB DAILY [facility] Stop: 03/13/17 10:01 Last Admin: 03/07/17 10:39 Dose: 125 mg Insulin Aspart (Novolog) 0 unit SC BIDAC [facility] PRN Reason: Protocol Last Admin: 03/07/17 08:06 Dose: Not Given Lisinopril (Zestril) 10 mg PO DAILY [facility] Last Admin: 03/07/17 10:20 Dose: 10 mg Metoclopramide HCl (Reglan) 5 mg IVP Q6 [facility] Last Admin: 03/07/17 12:45 Dose: 5 mg Metoprolol Tartrate (Lopressor) 25 mg PO BID [facility] Last Admin: 03/07/17 10:19 Dose: 25 mg Pantoprazole Sodium (Protonix Ec Tab) 40 mg PO DAILY [facility] Last Admin: 03/07/17 10:19 Dose: 40 mg Sucralfate (Carafate Oral Susp) 1 gm PO ACBHS [facility] Last Admin: 03/07/17 08:50 Dose: 1 gm - Labs Labs: 03/07/17 07:26 03/07/17 07:26 PT 11.5 SECONDS (9.7-12.2) 03/03/17 15:38 INR 1.0 03/03/17 15:38 APTT 32 SECONDS (21-34) 03/03/17 15:38 - Constitutional Appears: Non-toxic, No Acute Distress - Head Exam Head Exam: ATRAUMATIC, NORMAL INSPECTION, NORMOCEPHALIC - Eye Exam Eye Exam: EOMI, Normal appearance - ENT Exam ENT Exam: Mucous Membranes Moist, Normal Exam - Neck Exam Neck Exam: Full ROM, Normal Inspection - Respiratory Exam Respiratory Exam: Clear to Ausculation Bilateral, NORMAL BREATHING PATTERN - Cardiovascular Exam Cardiovascular Exam: REGULAR RHYTHM, +S1, +S2 - GI/Abdominal Exam GI & Abdominal Exam: Soft, Normal Bowel Sounds. absent: Distended, Firm, Guarding, Rigid, Tenderness, Hyperactive Bowel Sounds, Mass, Pulsatile Mass, Rebound - Extremities Exam Extremities Exam: Full ROM, Normal Capillary Refill, Normal Inspection. absent : Pedal Edema, Tenderness - Back Exam Back Exam: Full ROM, NORMAL INSPECTION - Neurological Exam Neurological Exam: Alert, Awake, CN II-XII Intact, Normal Gait, Oriented x3 - Psychiatric Exam Psychiatric exam: Normal Affect, Normal Mood - Skin Skin Exam: Dry, Intact, Normal Color, Warm Assessment and Plan - Assessment and Plan (Free Text) Assessment: 71M w/gastric adenocarcinoma Plan: Gastric adenocarcinoma CT abd: 1. 2 mm left upper lobe pulmonary nodule. An optional follow-up CT at 12 months could be performed due to the high risk of malignancy. If unchanged, no further follow-up is necessary. 2. 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 Adenopathy noted in the periportal region and gastrohepatic ligament likely representing metastatic disease. Nodular thickening of the medial limb of the adrenal glands bilaterally. No discrete mass is noted however the finding is considered suspicious particularly in the setting of metastatic gastric carcinoma. Followup in 3-6 months might be considered. -Oncology following - to d/w family regarding desire for treatment -if family desires, may place portacath for chemo -all other mgmt as per primary and oncological teams PRANAV attending Radha PGY-1
--- NOTE | 2017-03-08 02:55 | CP.PCM.PN ---
Subjective - Date & Time of Evaluation Date of Evaluation: 03/07/17 Time of Evaluation: 14:00 - Subjective Subjective: No complaints. Discussed the biopsy results with the pts daughter. She would like to inform her father of the diagnosis and discuss things further with him if he is interested in treatment. Objective - Vital Signs/Intake and Output Vital Signs (last 24 hours): Temp Pulse Resp BP Pulse Ox 98.5 F 64 20 164/85 H 97 03/08/17 00:22 03/08/17 00:22 03/08/17 00:22 03/08/17 00:22 03/08/17 00:22 Intake and Output: 03/07/17 03/08/17 18:59 06:59 Intake Total 300 Balance 300 - Medications Medications: Current Medications Acetaminophen (Tylenol 325mg Tab) 650 mg PO Q6 PRN PRN Reason: Pain, moderate (4-7) Amlodipine Besylate (Norvasc) 10 mg PO DAILY [facility] Last Admin: 03/07/17 10:25 Dose: 10 mg Ferric Sodium Gluconate Complex (Ferrlecit) 125 mg IVPB DAILY [facility] Stop: 03/13/17 10:01 Last Admin: 03/07/17 10:39 Dose: 125 mg Insulin Aspart (Novolog) 0 unit SC BIDAC [facility] PRN Reason: Protocol Last Admin: 03/07/17 08:06 Dose: Not Given Lisinopril (Zestril) 10 mg PO DAILY [facility] Last Admin: 03/07/17 10:20 Dose: 10 mg Metoclopramide HCl (Reglan) 5 mg IVP Q6 [facility] Last Admin: 03/08/17 00:11 Dose: 5 mg Metoprolol Tartrate (Lopressor) 25 mg PO BID [facility] Last Admin: 03/07/17 10:19 Dose: 25 mg Pantoprazole Sodium (Protonix Ec Tab) 40 mg PO DAILY [facility] Last Admin: 03/07/17 10:19 Dose: 40 mg Sucralfate (Carafate Oral Susp) 1 gm PO ACBHS [facility] Last Admin: 03/07/17 23:00 Dose: 1 gm - Labs Labs: 03/07/17 07:26 03/07/17 07:26 PT 11.5 SECONDS (9.7-12.2) 03/03/17 15:38 INR 1.0 03/03/17 15:38 APTT 32 SECONDS (21-34) 03/03/17 15:38 - Head Exam Head Exam: ATRAUMATIC - Eye Exam Eye Exam: Normal appearance - ENT Exam ENT Exam: Mucous Membranes Dry - Respiratory Exam Respiratory Exam: NORMAL BREATHING PATTERN - Cardiovascular Exam Cardiovascular Exam: +S1, +S2 - GI/Abdominal Exam GI & Abdominal Exam: Normal Bowel Sounds - Extremities Exam Extremities Exam: Normal Inspection Assessment and Plan (1) Anemia Assessment & Plan: iron and b12 deficiency on IV iron s/p PRBC transfusion Status: Acute (2) Gastric adenocarcinoma Assessment & Plan: radiographically appears to have locally advanced disease would benefit from outpatient PET CT and neoadjuvant chemotherapy prior to surgery discussed this with the pts daughter and she will discuss the diagnosis and treatment with her father outpatient f/u with me should the pt agree on treatment Status: Acute
--- NOTE | 2017-03-08 06:15 | CP.PCM.PN ---
<Radha Garcia - Last Filed: 03/08/17 06:13> Subjective - Date & Time of Evaluation Date of Evaluation: 03/08/17 Time of Evaluation: 06:00 - Subjective Subjective: General sx progress note for Dr. Guillen-Radha Garcia, PGY-1 Pt S & E at bedside. Pt without complaints overnight. Denies N/V/F/C, ab pain, chest pain, SOB. Continues to tolerate diet. Objective - Vital Signs/Intake and Output Vital Signs (last 24 hours): Temp Pulse Resp BP Pulse Ox 98.5 F 64 20 164/85 H 97 03/08/17 00:22 03/08/17 00:22 03/08/17 00:22 03/08/17 00:22 03/08/17 00:22 Intake and Output: 03/07/17 03/08/17 18:59 06:59 Intake Total 300 Balance 300 - Medications Medications: Current Medications Acetaminophen (Tylenol 325mg Tab) 650 mg PO Q6 PRN PRN Reason: Pain, moderate (4-7) Amlodipine Besylate (Norvasc) 10 mg PO DAILY [facility] Last Admin: 03/07/17 10:25 Dose: 10 mg Ferric Sodium Gluconate Complex (Ferrlecit) 125 mg IVPB DAILY [facility] Stop: 03/13/17 10:01 Last Admin: 03/07/17 10:39 Dose: 125 mg Insulin Aspart (Novolog) 0 unit SC BIDAC [facility] PRN Reason: Protocol Last Admin: 03/07/17 08:06 Dose: Not Given Lisinopril (Zestril) 10 mg PO DAILY [facility] Last Admin: 03/07/17 10:20 Dose: 10 mg Metoclopramide HCl (Reglan) 5 mg IVP Q6 [facility] Last Admin: 03/08/17 05:52 Dose: 5 mg Metoprolol Tartrate (Lopressor) 25 mg PO BID [facility] Last Admin: 03/07/17 10:19 Dose: 25 mg Pantoprazole Sodium (Protonix Ec Tab) 40 mg PO DAILY [facility] Last Admin: 03/07/17 10:19 Dose: 40 mg Sucralfate (Carafate Oral Susp) 1 gm PO ACBHS [facility] Last Admin: 03/07/17 23:00 Dose: 1 gm - Labs Labs: 03/07/17 07:26 03/07/17 07:26 PT 11.5 SECONDS (9.7-12.2) 03/03/17 15:38 INR 1.0 03/03/17 15:38 APTT 32 SECONDS (21-34) 03/03/17 15:38 - Constitutional Appears: Non-toxic, No Acute Distress - Head Exam Head Exam: ATRAUMATIC, NORMAL INSPECTION, NORMOCEPHALIC - Eye Exam Eye Exam: EOMI, Normal appearance - ENT Exam ENT Exam: Mucous Membranes Moist, Normal Exam - Neck Exam Neck Exam: Full ROM, Normal Inspection - Respiratory Exam Respiratory Exam: Clear to Ausculation Bilateral, NORMAL BREATHING PATTERN. absent: Rales, Rhonchi, Wheezes, Respiratory Distress - Cardiovascular Exam Cardiovascular Exam: REGULAR RHYTHM, +S1, +S2 - GI/Abdominal Exam GI & Abdominal Exam: Soft, Hyperactive Bowel Sounds. absent: Distended, Firm, Tenderness, Mass - Extremities Exam Extremities Exam: Normal Inspection. absent: Pedal Edema, Tenderness - Neurological Exam Neurological Exam: Alert, Awake, CN II-XII Intact, Oriented x3 - Psychiatric Exam Psychiatric exam: Normal Affect, Normal Mood - Skin Skin Exam: Dry, Intact, Normal Color, Warm Assessment and Plan - Assessment and Plan (Free Text) Assessment: 71M w/gastric adenocarcinoma Plan: Gastric adenocarcinoma -Daughter to DW pt re: tx -poss portacath for chemo if desired -all other mgmt as per primary and oncological teams DW attending Radha PGY-1 <Andre Guillen - Last Filed: 03/15/17 16:56> Objective - Vital Signs/Intake and Output Vital Signs (last 24 hours): Temp Pulse Resp BP Pulse Ox 97.8 F 70 20 163/75 H 99 03/09/17 08:00 03/09/17 08:00 03/09/17 08:00 03/09/17 00:27 03/09/17 08:00 - Labs Labs: 03/07/17 07:26 03/07/17 07:26 PT 11.5 SECONDS (9.7-12.2) 03/03/17 15:38 INR 1.0 03/03/17 15:38 APTT 32 SECONDS (21-34) 03/03/17 15:38 Attending/Attestation - Attestation I have personally seen and examined this patient.: Yes I have fully participated in the care of the patient.: Yes I have reviewed all pertinent clinical information, including history, physical exam and plan: Yes Notes (Text): 03/15/17 16:55 Pt was seen and examined at bedside on 03/08/17 Agree with above note and assessment Pt with Stage 4 Gastric Ca Awaiting family decision for Portacath insertion C.w current mx Poor prognosis Plan d/w pt and Primary team in detail Risk and benefit explained in detail.
[2017-03-08] MEDS: Sucralfate 1 gm/10 ml Oral Susp UD PO SCH ×2 (08:45→22:19)
[2017-03-08] MEDS: Pantoprazole 40 mg EC Tab PO SCH (09:12)
[2017-03-08] MEDS: (Novolog) Insulin Aspart, Recombinant 100 u/ml 10 ml vial SC SCH ×2 (09:12→17:59)
--- NOTE | 2017-03-08 10:26 | CP.PCM.PN ---
Subjective - Date & Time of Evaluation Date of Evaluation: 03/08/17 Time of Evaluation: 10:24 - Subjective Subjective: no symptom feels fine Objective - Vital Signs/Intake and Output Vital Signs (last 24 hours): Temp Pulse Resp BP Pulse Ox 98 F 65 20 130/80 99 03/08/17 08:00 03/08/17 08:00 03/08/17 08:00 03/08/17 09:11 03/08/17 08:00 Intake and Output: 03/08/17 03/08/17 06:59 18:59 Intake Total 500 Balance 500 - Medications Medications: Current Medications Acetaminophen (Tylenol 325mg Tab) 650 mg PO Q6 PRN PRN Reason: Pain, moderate (4-7) Amlodipine Besylate (Norvasc) 10 mg PO DAILY [facility] Last Admin: 03/07/17 10:25 Dose: 10 mg Ferric Sodium Gluconate Complex (Ferrlecit) 125 mg IVPB DAILY [facility] Stop: 03/13/17 10:01 Last Admin: 03/07/17 10:39 Dose: 125 mg Insulin Aspart (Novolog) 0 unit SC BIDAC [facility] PRN Reason: Protocol Last Admin: 03/08/17 09:12 Dose: Not Given Lisinopril (Zestril) 10 mg PO DAILY [facility] Last Admin: 03/08/17 09:12 Dose: 10 mg Metoclopramide HCl (Reglan) 5 mg IVP Q6 [facility] Last Admin: 03/08/17 05:52 Dose: 5 mg Metoprolol Tartrate (Lopressor) 25 mg PO BID [facility] Last Admin: 03/08/17 09:11 Dose: 25 mg Pantoprazole Sodium (Protonix Ec Tab) 40 mg PO DAILY [facility] Last Admin: 03/08/17 09:12 Dose: 40 mg Sucralfate (Carafate Oral Susp) 1 gm PO ACBHS [facility] Last Admin: 03/08/17 08:45 Dose: 1 gm - Labs Labs: 03/07/17 07:26 03/07/17 07:26 PT 11.5 SECONDS (9.7-12.2) 03/03/17 15:38 INR 1.0 03/03/17 15:38 APTT 32 SECONDS (21-34) 03/03/17 15:38 - Head Exam Head Exam: ATRAUMATIC, NORMAL INSPECTION - Respiratory Exam Respiratory Exam: Clear to Ausculation Bilateral - Cardiovascular Exam Cardiovascular Exam: REGULAR RHYTHM - GI/Abdominal Exam GI & Abdominal Exam: Normal Bowel Sounds Assessment and Plan - Assessment and Plan (Free Text) Assessment: 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 labs were improved. good performance
[2017-03-08] MEDS: Ferric Sodium Gluconat Complex 62.5 mg/5 ml Vial IVPB SCH (14:39)
[2017-03-09 00:29] VITALS: BP 163/75
--- NOTE | 2017-03-09 07:19 | CP.PCM.PN ---
<Radha Garcia - Last Filed: 03/09/17 16:41> Subjective - Date & Time of Evaluation Date of Evaluation: 03/09/17 Time of Evaluation: 07:18 - Subjective Subjective: General sx progress note for Dr. Guillen-Radha Garcia, PGY-1 Pt S & E at bedside this AM. Pt w/o complaints overnight. Denies N/V/F/C, abdominal pain, chest pain, SOB, is eating well. General surgery spoke to daughter via telephone at bedside- pt still deciding if he wants chemo. Objective - Vital Signs/Intake and Output Vital Signs (last 24 hours): Temp Pulse Resp BP Pulse Ox 98 F 62 20 163/75 H 96 03/09/17 00:27 03/09/17 00:27 03/09/17 00:27 03/09/17 00:27 03/09/17 00:27 Intake and Output: 03/09/17 03/09/17 06:59 18:59 Intake Total 300 Balance 300 - Medications Medications: Current Medications Acetaminophen (Tylenol 325mg Tab) 650 mg PO Q6 PRN PRN Reason: Pain, moderate (4-7) Amlodipine Besylate (Norvasc) 10 mg PO DAILY [facility] Last Admin: 03/08/17 14:39 Dose: 10 mg Ferric Sodium Gluconate Complex (Ferrlecit) 125 mg IVPB DAILY [facility] Stop: 03/13/17 10:01 Last Admin: 03/08/17 14:39 Dose: 125 mg Insulin Aspart (Novolog) 0 unit SC BIDAC [facility] PRN Reason: Protocol Last Admin: 03/08/17 17:59 Dose: Not Given Lisinopril (Zestril) 10 mg PO DAILY [facility] Last Admin: 03/08/17 09:12 Dose: 10 mg Metoclopramide HCl (Reglan) 5 mg IVP Q6 [facility] Last Admin: 03/09/17 05:49 Dose: 5 mg Metoprolol Tartrate (Lopressor) 25 mg PO BID [facility] Last Admin: 03/08/17 17:59 Dose: 25 mg Pantoprazole Sodium (Protonix Ec Tab) 40 mg PO DAILY [facility] Last Admin: 03/08/17 09:12 Dose: 40 mg Sucralfate (Carafate Oral Susp) 1 gm PO ACBHS [facility] Last Admin: 03/08/17 22:19 Dose: 1 gm - Labs Labs: 03/07/17 07:26 03/07/17 07:26 PT 11.5 SECONDS (9.7-12.2) 03/03/17 15:38 INR 1.0 03/03/17 15:38 APTT 32 SECONDS (21-34) 03/03/17 15:38 - Constitutional Appears: Non-toxic, No Acute Distress - Head Exam Head Exam: ATRAUMATIC, NORMAL INSPECTION, NORMOCEPHALIC - Eye Exam Eye Exam: EOMI, Normal appearance - Neck Exam Neck Exam: Full ROM, Normal Inspection - Respiratory Exam Respiratory Exam: Clear to Ausculation Bilateral, NORMAL BREATHING PATTERN - Cardiovascular Exam Cardiovascular Exam: REGULAR RHYTHM, +S1, +S2 - GI/Abdominal Exam GI & Abdominal Exam: Soft, Normal Bowel Sounds. absent: Tenderness - Extremities Exam Extremities Exam: Full ROM, Normal Inspection - Neurological Exam Neurological Exam: Alert, Awake, Normal Gait - Psychiatric Exam Psychiatric exam: Normal Affect, Normal Mood - Skin Skin Exam: Dry, Intact, Normal Color, Warm Assessment and Plan - Assessment and Plan (Free Text) Assessment: 71M w/gastric adenocarcinoma Plan: Gastric adenocarcinoma -Family still deciding re: chemo -poss portacath for chemo if desired -all other mgmt as per primary and oncological teams Will DW attending Radha PGY-1 <Andre Guillen - Last Filed: 03/15/17 17:05> Objective - Vital Signs/Intake and Output Vital Signs (last 24 hours): Temp Pulse Resp BP Pulse Ox 97.8 F 70 20 163/75 H 99 03/09/17 08:00 03/09/17 08:00 03/09/17 08:00 03/09/17 00:27 03/09/17 08:00 - Labs Labs: 03/07/17 07:26 03/07/17 07:26 PT 11.5 SECONDS (9.7-12.2) 03/03/17 15:38 INR 1.0 03/03/17 15:38 APTT 32 SECONDS (21-34) 03/03/17 15:38 Attending/Attestation - Attestation I have personally seen and examined this patient.: Yes I have fully participated in the care of the patient.: Yes I have reviewed all pertinent clinical information, including history, physical exam and plan: Yes Notes (Text): 03/15/17 17:04 Pt was seen and examined at bedside on 03/09/17 Agree with above note and assessment Pt with Stage 4 Gastric Ca Pt and family is undecided about portacath F.U as out pt Plan d/w pt and Primary team in detail Risk and benefit explained in detail.
--- NOTE | 2017-03-09 08:23 | CP.PCM.PN ---
Subjective - Date & Time of Evaluation Date of Evaluation: 03/09/17 Time of Evaluation: 08:17 - Subjective Subjective: no symptom Objective - Vital Signs/Intake and Output Vital Signs (last 24 hours): Temp Pulse Resp BP Pulse Ox 98 F 62 20 163/75 H 96 03/09/17 00:27 03/09/17 00:27 03/09/17 00:27 03/09/17 00:27 03/09/17 00:27 Intake and Output: 03/09/17 03/09/17 06:59 18:59 Intake Total 300 Balance 300 - Medications Medications: Current Medications Acetaminophen (Tylenol 325mg Tab) 650 mg PO Q6 PRN PRN Reason: Pain, moderate (4-7) Amlodipine Besylate (Norvasc) 10 mg PO DAILY [facility] Last Admin: 03/08/17 14:39 Dose: 10 mg Ferric Sodium Gluconate Complex (Ferrlecit) 125 mg IVPB DAILY [facility] Stop: 03/13/17 10:01 Last Admin: 03/08/17 14:39 Dose: 125 mg Insulin Aspart (Novolog) 0 unit SC BIDAC [facility] PRN Reason: Protocol Last Admin: 03/08/17 17:59 Dose: Not Given Lisinopril (Zestril) 10 mg PO DAILY [facility] Last Admin: 03/08/17 09:12 Dose: 10 mg Metoclopramide HCl (Reglan) 5 mg IVP Q6 [facility] Last Admin: 03/09/17 05:49 Dose: 5 mg Metoprolol Tartrate (Lopressor) 25 mg PO BID [facility] Last Admin: 03/08/17 17:59 Dose: 25 mg Pantoprazole Sodium (Protonix Ec Tab) 40 mg PO DAILY [facility] Last Admin: 03/08/17 09:12 Dose: 40 mg Sucralfate (Carafate Oral Susp) 1 gm PO ACBHS [facility] Last Admin: 03/08/17 22:19 Dose: 1 gm - Labs Labs: 03/07/17 07:26 03/07/17 07:26 PT 11.5 SECONDS (9.7-12.2) 03/03/17 15:38 INR 1.0 03/03/17 15:38 APTT 32 SECONDS (21-34) 03/03/17 15:38 - Constitutional Appears: Well, Non-toxic - Respiratory Exam Respiratory Exam: NORMAL BREATHING PATTERN - Cardiovascular Exam Cardiovascular Exam: REGULAR RHYTHM - GI/Abdominal Exam GI & Abdominal Exam: Normal Bowel Sounds Assessment and Plan - Assessment and Plan (Free Text) Assessment: gastric adenocarcinoma anemia hypertension Plan: patient wants to think about the plan and told me to give him some time to think about for a week. Recommended him for a Port insertion for chemotherapy. He said that he will think about that too He wants to be discharged home today. Oncology follow up.
[2017-03-09 08:25] VITALS: PULSE 70; TEMP 97.8; O2SAT 99
[2017-03-09] MEDS: Sucralfate 1 gm/10 ml Oral Susp UD PO SCH (08:33)
[2017-03-09] MEDS: (Novolog) Insulin Aspart, Recombinant 100 u/ml 10 ml vial SC SCH (08:34)
[2017-03-09] MEDS: Ferric Sodium Gluconat Complex 62.5 mg/5 ml Vial IVPB SCH (09:10)
[2017-03-09] MEDS: Pantoprazole 40 mg EC Tab PO SCH (09:11)
--- NOTE | 2017-03-14 10:00 | CP.PCM.DIS ---
Provider - Provider Date of Admission: 03/03/17 16:55 Attending physician: Kailey Huizar MD Primary care physician: Dr. Kailey Huizar Consults: Dr. Rodrigo Leon Time Spent in preparation of Discharge (in minutes): 30 Hospital Course - Lab Results Lab Results: Most Recent Lab Values WBC 8.1 K/uL (4.8-10.8) 03/07/17 07:26 RBC 4.64 Mil/uL (4.40-5.90) 03/07/17 07:26 Hgb 9.7 g/dL (12.0-18.0) L 03/07/17 07:26 Hct 30.5 % (35.0-51.0) L 03/07/17 07:26 MCV 65.8 fL (80.0-94.0) L 03/07/17 07:26 MCH 20.9 pg (27.0-31.0) L 03/07/17 07:26 MCHC 31.8 g/dL (33.0-37.0) L 03/07/17 07:26 RDW 29.3 % (11.5-14.5) H 03/07/17 07:26 Plt Count 291 K/uL (130-400) 03/07/17 07:26 MPV 8.3 fL (7.2-11.7) 03/07/17 07:26 Neut % (Auto) 63.1 % (50.0-75.0) 03/07/17 07:26 Lymph % (Auto) 22.9 % (20.0-40.0) 03/07/17 07:26 Benzie % (Auto) 7.5 % (0.0-10.0) 03/07/17 07:26 Eos % (Auto) 5.5 % (0.0-4.0) H 03/07/17 07:26 Baso % (Auto) 1.0 % (0.0-2.0) 03/07/17 07:26 Neut # 5.1 K/uL (1.8-7.0) 03/07/17 07:26 Lymph # 1.9 K/uL (1.0-4.3) 03/07/17 07:26 Benzie # 0.6 K/uL (0.0-0.8) 03/07/17 07:26 Eos # 0.4 K/uL (0.0-0.7) 03/07/17 07:26 Baso # 0.1 K/uL (0.0-0.2) 03/07/17 07:26 Differential Comment 03/03/17 15:38 Retic Count 1.2 % (0.5-1.5) 03/04/17 08:59 PT 11.5 SECONDS (9.7-12.2) 03/03/17 15:38 INR 1.0 03/03/17 15:38 APTT 32 SECONDS (21-34) 03/03/17 15:38 Sodium 138 mmol/L (132-148) 03/07/17 07:26 Potassium 3.8 mmol/L (3.6-5.2) 03/07/17 07:26 Chloride 105 mmol/L (98-107) 03/07/17 07:26 Carbon Dioxide 24 mmol/L (22-30) 03/07/17 07:26 Anion Gap 13 (10-20) 03/07/17 07:26 BUN 12 mg/dL (9-20) 03/07/17 07:26 Creatinine 0.7 MG/DL (0.8-1.5) L 03/07/17 07:26 Est GFR ( Amer) > 60 03/07/17 07:26 Est GFR (Non-Af Amer) > 60 03/07/17 07:26 POC Glucose (mg/dL) 131 mg/dL (65-110) H 03/09/17 11:27 Random Glucose 107 mg/dL (75-110) 03/07/17 07:26 Calcium 8.4 mg/dl (8.6-10.4) L 03/07/17 07:26 Iron 28 ug/dL (49-181) L 03/04/17 08:24 TIBC 351 ug/dL (250-450) 03/04/17 08:24 Ferritin 6.9 ng/mL 03/04/17 08:24 Total Bilirubin 0.6 mg/dL (0.2-1.3) 03/06/17 13:48 AST 12 U/L (17-59) L 03/06/17 13:48 ALT 14 U/L (21-72) L 03/06/17 13:48 Alkaline Phosphatase 67 U/L (38-126) 03/06/17 13:48 Total Protein 6.0 g/dL (6.3-8.3) L 03/06/17 13:48 Albumin 2.8 g/dL (3.5-5.0) L 03/06/17 13:48 Globulin 3.2 gm/dL (2.2-3.9) 03/06/17 13:48 Albumin/Globulin Ratio 0.9 (1.0-2.1) L 03/06/17 13:48 Carcinoembryonic Ag 56.0 ng/mL (0-3.0) H 03/04/17 11:34 CA 19-9 Antigen 7.5 U/mL (0-37) 03/04/17 11:34 Vitamin B12 231 pg/mL (239-931) L 03/04/17 08:24 Folate 6.5 ng/mL 03/04/17 08:24 Stool Occult Blood Positive (NEGATIVE) H 03/03/17 16:24 Blood Type A POSITIVE 03/03/17 15:38 Blood Type Confirm A POSITIVE 03/03/17 15:38 Antibody Screen Negative 03/03/17 15:38 - Hospital Course Hospital Course: A 71 year old male with hypertension came on 03/03/17 with low hemoglobin of 5.7. Stool Guiac was positive. He received total three units of pRBC transfusion. Hemoglobin went up to 9.7. Dr Guzman did an EGD and showed gastric mass on antrum and body. Endoscopic biopsy showed invasive adenocarcinoma. Colonoscopy showed internal hemorrhoid and colitis. CAT scan of abdomen showed metastic lymphadenopathy on gastro-hepatic ligament. Oncology consult and surgery consult recommended pre-operative chemotherapy. Port insertion was recommended to the patient. He wanted to be discharged first and follow up with PMD and Dr. Rodrigo Mcmanus. He was discharged on 03/09/17. - Date & Time of H&P Date of H&P: 03/14/17 Time of H&P: 10:05 Discharge Exam - Head Exam Head Exam: ATRAUMATIC, NORMAL INSPECTION, NORMOCEPHALIC - Eye Exam Eye Exam: Normal appearance - Neck Exam Neck exam: Full Rom - Respiratory Exam Respiratory Exam: NORMAL BREATHING PATTERN - Cardiovascular Exam Cardiovascular Exam: REGULAR RHYTHM - GI/Abdominal Exam GI & Abdominal Exam: Normal Bowel Sounds Discharge Plan - Follow Up Plan Condition: FAIR Disposition: HOME/ ROUTINE Patient education suggested?: Yes Instructions: Anemia (DC) Referrals: Rodrigo Mcmanus MD [Staff Provider] - Kailey Huizar MD [Staff Provider] -
--- NOTE | 2017-03-24 17:04 | CON ---
DATE: 03/09/2017 I was called for GI consultation by the admitting medical team. The patient was seen and fully examined on 03/03/2017. As requested by the admitting MD, the entire chart is reviewed including but not limited to the most recent lab and radiology study results, current and previous medication list, current and previous medical events, allergy to medication list as well as all the available current and previous medical report. It has to be mentioned that due to language barrier, all the information obtained through a telephone space engineer as well as from all the medical and nursing staff notes. It has to be mentioned that at the time of the consultation, a short handwritten consultation sheet was left in the chart at the time of the consultation, but due to malfunction of the dictation system for which the consultation is dictated now. HISTORY OF PRESENT ILLNESS: This is a 71 years old male who was admitted to the hospital due to severe abdominal pain, was found to have low hemoglobin and hematocrit as outpatient for which he was directed by his primary MD to be admitted. The patient also reported moderate weight loss recently, but no reported active bleeding as per his history. The patient had been complaining of lightheadedness with exertion and slight shortness of breath. After being admitted to the hospital, the patient was found to have very low hemoglobin of 5.7 with hematocrit 19.2, low with increased BUN mildly to 22, but normal creatinine with elevated blood glucose level of 133 and low potassium 3.4. PAST MEDICAL HISTORY: Positive namely for hypertension and peptic ulcer disease. FAMILY HISTORY: Unknown. SOCIAL HISTORY: No reported cigarette smoking or alocohol intake recently. ALLERGIC TO MEDICATION: Unclear. CURRENT MEDICATIONS: Medication lists were reviewed. PHYSICAL EXAMINATION: GENERAL: A 71 years old male, awake, alert and oriented. VITAL SIGNS: Afebrile with pulse of 64, respiratory 18 to 20 with blood pressure 160/74. HEENT: Showed very pale, dry oral mucous membrane. Nonicteric sclerae. LYMPH NODES: No lymphadenitis or lymphadenopathy. LUNGS: Reveal scattered crepitation, decreased air entry at bases. HEART: Positive for S1 and S2. ABDOMEN: Soft, slight mild distention and mild tenderness. No mass or organomegaly could be appreciated. No rebound, tenderness or guarding. RECTAL: Positive stool, guaiac positive stool. EXTREMITIES: Without significant clubbing, cyanosis or edema. NEUROLOGIC: No new reported neurological deficits, sensory or motor. IMPRESSION: 1. Severe anemia. 2. Rule out gastrointestinal blood loss ------ to rule out occult gastrointestinal malignancy. 3. Known history of hypertension. 4. Dehydration. 5. Electrolyte imbalance with hypokalemia. 6. Elevated blood glucose level with unclear etiology. SUGGESTION: 1. Agree with your plan. 2. Blood transfusion to get hemoglobin around 10 g%. 3. Cancer markers. 4. Fix abdomen and pelvic CAT scan. 5. Endoscopic evaluation of the GI tract when the patient is more stable clinically. Thank you for letting me participate in your patient's case management. Becca Huynh MD cc: Gaye Bonner MD
== END 2017-03-09 12:14 | disposition home or self-care (01) | DRG 375 ==
LOC: C.ER 14:18 → C.9E 16:55 → C.6T 03-04 00:19 → C.3T 03-05 08:13
PROVIDERS: ADMIT Internal Medicine; ATTEND Internal Medicine
PROC: 30233N1 Transfusion of Nonautologous Red Blood Cells into Peripheral Vein, Percutaneous Approach (ICD-10-PCS; 2017-03-03)
PROC: 0DB68ZX Excision of Stomach, Via Natural or Artificial Opening Endoscopic, Diagnostic (ICD-10-PCS; principal; 2017-03-05 07:29)
PROC: 0DBM8ZX Excision of Descending Colon, Via Natural or Artificial Opening Endoscopic, Diagnostic (ICD-10-PCS; 2017-03-06)
DX: C16.2 Malignant neoplasm of body of stomach (principal); C77.2 Secondary and unspecified malignant neoplasm of intra-abdominal lymph nodes; K92.2 Gastrointestinal hemorrhage, unspecified; K29.00 Acute gastritis without bleeding; K52.9 Noninfective gastroenteritis and colitis, unspecified; K64.8 Other hemorrhoids; E11.9 Type 2 diabetes mellitus without complications; D50.0 Iron deficiency anemia secondary to blood loss (chronic); I10 Essential (primary) hypertension; E53.8 Deficiency of other specified B group vitamins; K44.9 Diaphragmatic hernia without obstruction or gangrene; D63.0 Anemia in neoplastic disease; N40.0 Benign prostatic hyperplasia without lower urinary tract symptoms; Z87.891 Personal history of nicotine dependence; Z23 Encounter for immunization

== ENCOUNTER 2017-03-30 09:41 | Day surgery (SDC) | payer MEDICARE, MEDICAID ==
[2017-03-27 12:49] VITALS: BMI 21.3
[2017-03-30] MEDS ORDERED: HEPARIN-NS 5,000 UNITS/500 ML 0 UNIT/0 ML BAG IV ONE (10:23)
[2017-03-30] MEDS ORDERED: ceFAZolin IV 1 gm in Dextrose 0 GM/0 ML BAG IVPB ONE (10:23)
[2017-03-30] MEDS ORDERED: Bupivacaine-Epi 0.25%-1:200,000 PF Inj ONE (10:23)
[2017-03-30] MEDS ORDERED: Lidocaine 1% Inj (20ml) ONE ×2 (10:24→11:08)
[2017-03-30] MEDS ORDERED: Bupivacaine 0.5%/Epi 1:200,000 (10 ML SOL) ONE (11:08)
[2017-03-30] MEDS ORDERED: HEPARIN-NS 5,000 UNITS/500 ML 5,000 UNIT/500 ML BAG IV ONE (11:16)
[2017-03-30] MEDS ORDERED: Lactated Ringer's 1,000 ML IV ONE (12:10)
[2017-03-30] MEDS ORDERED: Propofol 10 mg/ml Inj (20 ML) ONE (12:12)
[2017-03-30] MEDS ORDERED: ceFAZolin IV 2 gm in Dextrose 1 GM/50 ML BAG IVPB ONE (12:17)
[2017-03-30] MEDS ORDERED: Sodium Chloride 0.9% 20 ML IV ONE (12:36)
[2017-03-30] MEDS ORDERED: Oxycodone/Acetaminophen 5/325 mg Tab PO PRN (13:24)
--- NOTE | 2017-03-30 13:28 | PCM.SURG1 ---
Surgeon's Initial Post Op Note - Surgeon's Notes Surgeon: Yuniel Guillen MD Gastrointestinal Technician: Stanley Snell PGYII; Radha Garcia PGYI Pre-Operative Diagnosis: Gastric Cancer requiring Chemotherapy Operative Findings: See Op report Post-Operative Diagnosis: Gastric Cancer requiring Chemotherapy Operation Performed: Right internal jugular portacath placement with fluoroscopy Specimen/Specimens Removed: none Estimated Blood Loss: EBL {In ML}: 10 Blood Products Given: N/A Drains Used: No Drains Post-Op Condition: Good Date of Surgery/Procedure: 03/30/17 Time of Surgery/Procedure: 13:29
--- NOTE | 2017-03-30 13:53 | RAD ---
HISTORY: r/o pneumo, in pacu s/p RIJ portacath placement COMPARISON: 03/03/2017. FINDINGS: The right-sided Port-A-Cath terminates in the SVC. LUNGS: There are chronic changes in the lungs. No focal consolidation. PLEURA: No significant pleural effusion identified, no pneumothorax apparent. CARDIOVASCULAR: The heart is normal in size. Atherosclerotic aortic arch calcifications are present. . OSSEOUS STRUCTURES: No significant abnormalities. VISUALIZED UPPER ABDOMEN: Normal. OTHER FINDINGS: None. IMPRESSION: No active pulmonary disease.
[2017-03-30] MEDS ORDERED: HYDROmorphone 0.5 mg/0.5 ml ISec IVP PRN (13:58)
[2017-03-30] MEDS ORDERED: Lactated Ringer's 1,000 ML IV SCH (14:00)
[2017-03-30 16:36] VITALS: BP 170/75; PULSE 75; RESP 18; TEMP 98; O2SAT 98
--- NOTE | 2017-03-31 03:50 | OP ---
PROCEDURE DATE: 03/30/2017 PREOPERATIVE DIAGNOSIS: Gastric cancer. POSTOPERATIVE DIAGNOSIS: Gastric cancer. PROCEDURE DONE: 1. Right IJ Port-A-Cath insertion. 2. Intraoperative fluoroscopy. 3. Ultrasound-guided venous access. SURGEON: Andre Guillen MD TICKER MAINTAINER: Dr. Stanley Snell. TYPE OF ANESTHESIA: Sedation plus local anesthesia. ESTIMATED BLOOD LOSS: Around 10 mL. DRAIN: None. PATHOLOGY: None. COMPLICATIONS: None. INTRAOPERATIVE FINDINGS: The patient had a patent right IJ on intraoperative ultrasound. DESCRIPTION OF PROCEDURE: This is a 72-year-old male who was diagnosed with gastric cancer and the patient was consented for the Port-A-Cath insertion, brought to the OR, placed in supine on operating table. After induction of anesthesia, the right upper chest and neck on the both sides were prepped and draped in the usual sterile fashion. Under ultrasound guidance, the right IJ venous access was done. Guidewire was placed. Intraoperative fluoroscopy confirmation was done. The right infraclavicular incision was made. A pouch was created. The catheter was tunneled from the pouch up to the right IJ insertion site and catheter was placed into the dilated sheath up to the SVC and right atrium junction and intraoperative fluoroscopic confirmation was done. The catheter was connected to the port. Port was accessed. Port was functioning without any blockage and port was sutured to the floor of the pouch and wound was closed in two layers, subcutaneous with 2-0 Vicryl, skin with 4-0 Monocryl. A 4-0 Monocryl was also used at right IJ puncture site and dry sterile dressing was applied. The patient tolerated the procedure well. Count of instrument was correct. There was no apparent complication. Andre Guillen MD MTDFelisha
--- NOTE | 2017-03-31 11:07 | RAD ---
PROCEDURE: Intraoperative Fluoroscopy. HISTORY: Gastric cancer FINDINGS: Fluoroscopic assistance was provided for right chest wall port placement. Please refer to the operative report from
== END 2017-03-30 14:45 | disposition home or self-care (01) ==
LOC: C.SDS 09:41
PROVIDERS: ATTEND Surgery Surgical Critical Care
DX: C16.9 Malignant neoplasm of stomach, unspecified (principal)
CPT/HCPCS: 36571; 71010; 77001; 82948; C1788; J0690; J1644; J2704; J3010; J7040; J7120

== ENCOUNTER 2017-06-19 18:27 | Inpatient (IN) | payer MEDICARE, MEDICAID ==
[2017-06-19 18:28] VITALS: BMI 21.3
[2017-06-19] MEDS ORDERED: Sodium Chloride 0.9% 1,000 ML IV ONE (19:25)
[2017-06-19] MEDS ORDERED: Pantoprazole 80 MG in Sodium Chloride 0.9% 100 ML IV STA (19:25)
--- NOTE | 2017-06-19 19:25 | C.PDOC ---
History Of Present Illness 72 y/o male patient sent to ER by PMD because of low hemoglobin. Patient was recently diagnosed with gastric cancer currently on chemo. Patient is currently speaking in complete sentences; denies any chest pain, shortness of breath, nausea, or vomiting. Time Seen by Provider: 06/19/17 19:25 Chief Complaint (Nursing): Abnormal Labs History Per: Patient History/Exam Limitations: no limitations Onset/Duration Of Symptoms: Hrs, Unknown Current Symptoms Are (Timing): Still Present Severity: Mild Pain Scale Rating Of: 3 Reports Recently: Seen In ED, Treated By A Physician Recent travel outside of the [place]: No Additional History Per: Patient Past Medical History Reviewed: Historical Data, Nursing Documentation, Vital Signs Vital Signs: Last Vital Signs Temp 97.7 F 06/19/17 21:47 Pulse 54 L 06/19/17 21:47 Resp 18 06/19/17 21:47 BP 163/88 H 06/19/17 21:47 Pulse Ox 100 06/19/17 21:47 - Medical History PMH: Anemia, Depression, HTN, Hypercholesterolemia Surgical History: Endoscopy - [facility] Procedures EXCISION OF DESCENDING COLON, ENDO, DIAGN (03/03/17) EXCISION OF STOMACH, ENDO, DIAGN (03/03/17) TRANSFUSE NONAUT RED BLOOD CELLS IN PERIPH VEIN, PERC (03/03/17) Family History: States: No Known Family Hx - Social History Hx Alcohol Use: No Hx Substance Use: No Review Of Systems Constitutional: Negative for: Fever Eyes: Negative for: Pain Cardiovascular: Negative for: Chest Pain Respiratory: Negative for: Shortness of Breath Gastrointestinal: Negative for: Nausea, Vomiting Genitourinary: Negative for: Dysuria Musculoskeletal: Negative for: Back Pain Skin: Positive for: Other (pale). Negative for: Rash Neurological: Negative for: Weakness Psych: Negative for: Anxiety Physical Exam - Physical Exam Appears: Non-toxic Skin: Warm, Dry Head: Normacephalic Eye(s): bilateral: Normal Inspection, PERRL, EOMI Oral Mucosa: Moist Neck: Supple Chest: Symmetrical, Other (right port cath) Cardiovascular: Rhythm Regular Respiratory: No Rales, No Rhonchi, No Wheezing Gastrointestinal/Abdominal: Soft, No Tenderness Back: No CVA Tenderness Extremity: Normal ROM, No Tenderness Extremity: Bilateral: Atraumatic, Normal Color And Temperature, Normal ROM Pulses: Left Dorsalis Pedis: Normal, Right Dorsalis Pedis: Normal Neurological/Psych: Oriented x3, Normal Speech, Normal Cognition Gait: Steady ED Course And Treatment - Laboratory Results Result Diagrams: 06/19/17 19:56 06/19/17 19:56 ECG: Interpreted By Me, Viewed By Me O2 Sat by Pulse Oximetry: 100 (room air) Pulse Ox Interpretation: Normal - Radiology CXR: Interpreted by Me, Viewed By Me CXR Interpretation: Yes: Other (port r chest). No: Infiltrates, Fracture, Pnemothorax Progress Note: Plans-. Urinalysis,Chest x-ray, Blood Tests,Healthy Diet,BBK. Meds- Tylenol,Insulin,Zofran,IV fluid, Protonix Disposition Discussed With .: Kailey Huizar Comment: accepted the pt onhis service and took over the care at 9:30 PM Doctor Will See Patient In The: Hospital Counseled Patient/Family Regarding: Studies Performed, Diagnosis - Disposition Disposition: HOSPITALIZED Disposition Time: 19:25 Condition: FAIR - POA Present On Arrival: None - Clinical Impression Clinical Impression: Severe anemia, Gastric mass - Scribe Statement The provider has reviewed the documentation as recorded by the Jaquan Peralta Provider Attestation: All medical record entries made by the Jaquan were at my direction and personally dictated by me. I have reviewed the chart and agree that the record accurately reflects my personal performance of the history, physical exam, medical decision making, and the department course for this patient. I have also personally directed, reviewed, and agree with the discharge instructions and disposition. Decision To Admit - Pt Status Changed To: Hospital Disposition Of: Inpatient - Admit Certification Admit to Inpatient:: After my assessment, the patient will require hospitalization for at least two midnights. This is because of the severity of symptoms shown, intensity of services needed, and/or the medical risk in this patient being treated as an outpatient. - InPatient: Physician Admission Certification: I certify that this patient requires 2 or more midnights of care for the following reason:: After my assessment, the patient will require hospitalization for at least two midnights. This is because of the severity of symptoms shown, intensity of services needed, and/or the medical risk in this patient being treated as an outpatient. - . Bed Request Type: Regular Admitting Physician: Kailey Huizar Patient Diagnosis: Severe anemia, Gastric mass
[2017-06-19 20:07] LABS: BASO # 0.1 K/uL (0.0-0.2); BASO % 1.6 % (0.0-2.0); EOS # 0.1 K/uL (0.0-0.7); EOS % 1.3 % (0.0-4.0); HEMATOCRIT 21.9 % (35.0-51.0); LYMPH % 16.7 % (20.0-40.0); MEAN CELL VOLUME 82.6 fL (80.0-94.0); MEAN CORPUSCULAR HEMOGLOBIN 28.1 pg (27.0-31.0); MEAN PLATELET VOLUME 6.2 fL (7.2-11.7); MONO # 0.6 K/uL (0.0-0.8); MONO % 10.3 % (0.0-10.0); RED CELL DISTRIBUTION WIDTH 26.7 % (11.5-14.5)
[2017-06-19 20:09] LABS: POTASSIUM 3.7 mmol/L (3.6-5.2)
[2017-06-19 20:12] LABS: ALB/GLOB RATIO 1.3 (1.0-2.1); BILIRUBIN,TOTAL 0.8 mg/dL (0.2-1.3); CALCIUM 8.8 mg/dl (8.6-10.4); TOTAL PROTEIN 7.2 g/dL (6.3-8.3)
[2017-06-19] MEDS: Sodium Chloride 0.9% 1,000 ML IV SCH (21:43)
[2017-06-19 22:37] LABS: URINE BILIRUBIN NEGATIVE (NEGATIVE); URINE BLOOD 1+ (NEGATIVE); URINE COLOR Straw (YELLOW); URINE GLUCOSE (UA) 2+ mg/dL (Normal); URINE KETONE NEGATIVE (NEGATIVE); URINE LEUKOCYTE ESTERASE NEG Leu/uL (Negative); URINE PROTEIN NEGATIVE (NEGATIVE); URINE UROBILINOGEN NORMAL mg/dL (0.2-1.0)
[2017-06-19] MEDS: (Novolin R) Insulin Human Regular 100 units/ml vial SC SCH (23:08)
[2017-06-20 02:51] VITALS: RESP 20
[2017-06-20] MEDS: Sodium Chloride 0.9% 1,000 ML IV SCH ×2 (05:18→15:47)
--- NOTE | 2017-06-20 07:42 | CP.PCM.HP ---
History of Present Illness - History of Present Illness History of Present Illness: A 72 year old male with a history of hypertension, mild diabetes, and advanced stomach cancer was admitted. He has been receiving chemotherapy at the out patient, however, recent follow up blood test revealed low hemoglobin of 6.4. Also he was found to have high creatinine of 5.4. As per his oncologist, his chemotherapy regimen included cisplatinum. He denies anorexia, abdominal pain, nausea, vomiting, fever, oliguria. He is ambulatory and goes to a day care center every day during week days. Present on Admission - Present on Admission Any Indicators Present on Admission: No History of DVT/PE: No History of Uncontrolled Diabetes: No Urinary Catheter: No Decubitus Ulcer Present: No Review of Systems - Constitutional Constitutional: absent: Anorexia, Chills - EENT Eyes: absent: Blurred Vision - Cardiovascular Cardiovascular: absent: Chest Pain - Gastrointestinal Gastrointestinal: absent: Abdominal Pain, Nausea, Vomiting Past Patient History - Past Medical History & Family History Past Medical History?: Yes - Past Social History Smoking Status: Never Smoked - CARDIAC Hx Hypercholesterolemia: Yes Hx Hypertension: Yes - PULMONARY Hx Respiratory Disorders: No - NEUROLOGICAL Hx Neurological Disorder: No - HEENT Hx HEENT Problems: No - RENAL Hx Chronic Kidney Disease: No - ENDOCRINE/METABOLIC Hx Endocrine Disorders: Yes Hx Diabetes Mellitus Type 2: Yes - HEMATOLOGICAL/ONCOLOGICAL Hx Anemia: Yes - MUSCULOSKELETAL/RHEUMATOLOGICAL Hx Musculoskeletal Disorders: Yes Hx Falls: Yes - GASTROINTESTINAL Hx Gastrointestinal Disorders: Yes Other/Comment: STOMACH CANCER - GENITOURINARY/GYNECOLOGICAL Hx Genitourinary Disorders: Yes Hx Prostate Problems: Yes - PSYCHIATRIC Hx Depression: Yes Hx Substance Use: No - SURGICAL HISTORY Hx Surgeries: Yes - ANESTHESIA Hx Anesthesia: Yes Hx Anesthesia Reactions: No Hx Malignant Hyperthermia: No Meds Allergies/Adverse Reactions: Allergies Allergy/AdvReac Type Severity Reaction Status Date / Time No Known Allergies Allergy Verified 06/19/17 18:55 Physical Exam - Constitutional Appears: No Acute Distress - Neck Exam Neck exam: Positive for: Full Rom - Respiratory Exam Respiratory Exam: Clear to Auscultation Bilateral, NORMAL BREATHING PATTERN (a magnus cath on left upper chest) - Cardiovascular Exam Cardiovascular Exam: REGULAR RHYTHM. absent: Systolic Murmur - GI/Abdominal Exam GI & Abdominal Exam: Normal Bowel Sounds, Soft. absent: Tenderness - Extremities Exam Extremities exam: Positive for: normal inspection. Negative for: pedal edema Results - Vital Signs Recent Vital Signs: Last Vital Signs Temp 98 F 06/20/17 05:15 Pulse 57 L 06/20/17 05:15 Resp 20 06/20/17 05:15 BP 174/84 H 06/20/17 05:15 Pulse Ox 99 06/20/17 00:25 - Labs Result Diagrams: 06/19/17 19:56 06/19/17 19:56 Labs: Laboratory Results - last 24 hr 06/19/17 06/19/17 06/19/17 19:26 19:56 19:56 WBC 6.0 RBC 2.65 L Hgb 7.4 L D Hct 21.9 L MCV 82.6 D MCH 28.1 MCHC 34.0 RDW 26.7 H Plt Count 130 D MPV 6.2 L Neut % (Auto) 70.1 Lymph % (Auto) 16.7 L [place] % (Auto) 10.3 H Eos % (Auto) 1.3 Baso % (Auto) 1.6 Neut # 4.2 Lymph # 1.0 [place] # 0.6 Eos # 0.1 Baso # 0.1 PT 11.7 INR 1.0 APTT 62 H Sodium Potassium Chloride Carbon Dioxide Anion Gap BUN Creatinine Est GFR ( Amer) Est GFR (Non-Af Amer) POC Glucose (mg/dL) Random Glucose Calcium Total Bilirubin AST ALT Alkaline Phosphatase Total Protein Albumin Globulin Albumin/Globulin Ratio Lipase Urine Color Straw Urine Clarity Clear Urine pH 7.0 Ur Specific [place] 1.009 Urine Protein Negative Urine Glucose (UA) 2+ H Urine Ketones Negative Urine Blood 1+ H Urine Nitrate Negative Urine Bilirubin Negative Urine Urobilinogen Normal Ur Leukocyte Esterase Neg Blood Type Antibody Screen 06/19/17 06/19/17 06/20/17 19:56 19:56 02:04 WBC RBC Hgb Hct MCV MCH MCHC RDW Plt Count MPV Neut % (Auto) Lymph % (Auto) [place] % (Auto) Eos % (Auto) Baso % (Auto) Neut # Lymph # [place] # Eos # Baso # PT INR APTT Sodium 137 Potassium 3.7 Chloride 100 Carbon Dioxide 20 L Anion Gap 21 H BUN 65 H Creatinine 5.6 H Est GFR ( Amer) 12 Est GFR (Non-Af Amer) 10 POC Glucose (mg/dL) 133 H Random Glucose 135 H Calcium 8.8 Total Bilirubin 0.8 AST 15 L ALT 19 L D Alkaline Phosphatase 51 Total Protein 7.2 Albumin 4.1 Globulin 3.1 Albumin/Globulin Ratio 1.3 Lipase 74 Urine Color Urine Clarity Urine pH Ur Specific [place] Urine Protein Urine Glucose (UA) Urine Ketones Urine Blood Urine Nitrate Urine Bilirubin Urine Urobilinogen Ur Leukocyte Esterase Blood Type A POSITIVE Antibody Screen Negative 06/20/17 07:00 WBC RBC Hgb Hct MCV MCH MCHC RDW Plt Count MPV Neut % (Auto) Lymph % (Auto) [place] % (Auto) Eos % (Auto) Baso % (Auto) Neut # Lymph # [place] # Eos # Baso # PT INR APTT Sodium Potassium Chloride Carbon Dioxide Anion Gap BUN Creatinine Est GFR ( Amer) Est GFR (Non-Af Amer) POC Glucose (mg/dL) 107 Random Glucose Calcium Total Bilirubin AST ALT Alkaline Phosphatase Total Protein Albumin Globulin Albumin/Globulin Ratio Lipase Urine Color Urine Clarity Urine pH Ur Specific [place] Urine Protein Urine Glucose (UA) Urine Ketones Urine Blood Urine Nitrate Urine Bilirubin Urine Urobilinogen Ur Leukocyte Esterase Blood Type Antibody Screen Assessment & Plan - Assessment and Plan (Free Text) Assessment: 1. anemia of Hb of 7.4 R/O related to chronic blood loss R/O chemotherapy related bone marrow suppression 2. acute renal insufficiency R/O cisplatin induced 3. advanced stomach cancer 4. hypertension Plan: two units of pRBC blood transfusion intravenous hydration follow up labs oncology consult - Date & Time Date: 06/20/17 Time: 07:48 Decision To Admit - Pt Status Changed To: Hospital Disposition Of: Inpatient - Admit Certification Admit to Inpatient:: After my assessment, the patient will require hospitalization for at least two midnights. This is because of the severity of symptoms shown, intensity of services needed, and/or the medical risk in this patient being treated as an outpatient. - InPatient: Physician Admission Certification:: as ordered - . Bed Request Type: Regular Admitting Physician: Kailey Huizar
[2017-06-20 07:59] LABS: BASO # 0.1 K/uL (0.0-0.2); EOS # 0.1 K/uL (0.0-0.7); LYMPH # 0.9 K/uL (1.0-4.3); MEAN CELL VOLUME 81.2 fL (80.0-94.0); MEAN PLATELET VOLUME 8.2 fL (7.2-11.7); WHITE BLOOD COUNT 4.4 K/uL (4.8-10.8)
[2017-06-20 08:24] LABS: BASO % 1.4 % (0.0-2.0); EOS % 2.8 % (0.0-4.0); HEMATOCRIT 28.3 % (35.0-51.0); LYMPH % 19.8 % (20.0-40.0); MEAN CORPUSCULAR HEMOGLOBIN 28.1 pg (27.0-31.0); MEAN CORPUSCULAR HGB CONC 34.6 g/dL (33.0-37.0); MONO # 0.6 K/uL (0.0-0.8); MONO % 12.6 % (0.0-10.0); NRBC % 0.1 % (0.0-2.0); RED CELL DISTRIBUTION WIDTH 22.6 % (11.5-14.5)
[2017-06-20 08:30] LABS: POTASSIUM 3.3 mmol/L (3.6-5.2)
[2017-06-20 08:33] LABS: ALB/GLOB RATIO 1.1 (1.0-2.1); BILIRUBIN,TOTAL 1.2 mg/dL (0.2-1.3); CALCIUM 8.2 mg/dl (8.6-10.4); TOTAL PROTEIN 6.5 g/dL (6.3-8.3)
[2017-06-20] MEDS: (Novolin R) Insulin Human Regular 100 units/ml vial SC SCH ×4 (08:38→21:47)
--- NOTE | 2017-06-20 09:22 | RAD ---
PROCEDURE: CHEST RADIOGRAPH, 1 VIEW HISTORY: GI Bleeding COMPARISON: Comparison is made to 03/30/2017 FINDINGS: LUNGS: No evidence of new infiltrate or consolidation in the lungs. PLEURA: No pneumothorax or pleural fluid seen. CARDIOVASCULAR: Normal. OSSEOUS STRUCTURES: No significant abnormalities. VISUALIZED UPPER ABDOMEN: Normal. OTHER FINDINGS: Right-sided Infusaport is seen in place. IMPRESSION: No active disease.
[2017-06-20] MEDS ORDERED: ISOSORBIDE DINITRATE 30 MG PO SCH (10:00)
[2017-06-20] MEDS ORDERED: Metoprolol Succinate 200 mg XL Tab PO SCH (10:00)
[2017-06-20] MEDS ORDERED: Metoprolol Succinate 100 mg XL Tab PO SCH (11:30)
[2017-06-20] MEDS ORDERED: Potassium Chloride 20 mEq ER Tab PO ONE (12:45)
--- NOTE | 2017-06-20 20:17 | CP.PCM.CON ---
History of Present Illness - History of Present Illness History of Present Illness: 72 year old male with a history of HTN and locally advanced gastric adenocarcinoma diagnosed in 02/2017 on neoadjuvant chemotherapy, admitted with anemia and renal failure. The patient has been receiving chemotherapy using cisplatin and Xeloda since 04/2017. He has tolerated his treatment well and is scheduled to have gastric surgery in 08/2017. He denies abnormal bleeding and bruising. Past medical history: HTN, gastric cancer Past surgical history: None Family history: Denies hematologic and oncologic problems Social history: Smokes 1ppd x 45 years, social ETOH, denies illicit drug use. Allergies: NKA Review of systems: All remaining review of systems including HEENT, cardiovascular, respiratory, gastrointestinal, genitourinary, musculoskeletal, dermatologic, neurologic, and psychiatric are negative unless mentioned in the HPI. Past Patient History - Past Medical History & Family History Past Medical History?: Yes - Past Social History Smoking Status: Never Smoked - CARDIAC Hx Hypercholesterolemia: Yes Hx Hypertension: Yes - PULMONARY Hx Respiratory Disorders: No - NEUROLOGICAL Hx Neurological Disorder: No - HEENT Hx HEENT Problems: No - RENAL Hx Chronic Kidney Disease: No - ENDOCRINE/METABOLIC Hx Endocrine Disorders: Yes Hx Diabetes Mellitus Type 2: Yes - HEMATOLOGICAL/ONCOLOGICAL Hx Anemia: Yes - MUSCULOSKELETAL/RHEUMATOLOGICAL Hx Musculoskeletal Disorders: Yes Hx Falls: Yes - GASTROINTESTINAL Hx Gastrointestinal Disorders: Yes Other/Comment: STOMACH CANCER - GENITOURINARY/GYNECOLOGICAL Hx Genitourinary Disorders: Yes Hx Prostate Problems: Yes - PSYCHIATRIC Hx Depression: Yes Hx Substance Use: No - SURGICAL HISTORY Hx Surgeries: Yes - ANESTHESIA Hx Anesthesia: Yes Hx Anesthesia Reactions: No Hx Malignant Hyperthermia: No Meds Allergies/Adverse Reactions: Allergies Allergy/AdvReac Type Severity Reaction Status Date / Time No Known Allergies Allergy Verified 06/19/17 18:55 - Medications Medications: Current Medications Acetaminophen (Tylenol 325mg Tab) 650 mg PO Q6H PRN PRN Reason: Pain, Mild (1-3) Amlodipine Besylate (Norvasc) 10 mg PO DAILY [facility] Last Admin: 06/20/17 11:25 Dose: 10 mg Hydrochlorothiazide (Hydrodiuril) 25 mg PO DAILY [facility] Last Admin: 06/20/17 11:13 Dose: 25 mg Sodium Chloride (Sodium Chloride 0.9%) 1,000 mls @ 100 mls/hr IV .Q10H [facility] Last Admin: 06/20/17 15:47 Dose: 100 mls/hr Insulin Human Regular (Novolin R) 0 unit SC ACHS [facility] PRN Reason: Protocol Last Admin: 06/20/17 12:49 Dose: 1 unit Isosorbide Mononitrate (Imdur Er) 30 mg PO DAILY [facility] Metoprolol Succinate (Toprol Xl) 200 mg PO DAILY [facility] Last Admin: 06/20/17 11:25 Dose: 200 mg Ondansetron HCl (Zofran Inj) 4 mg IVP Q4H PRN PRN Reason: Nausea/Vomiting Pantoprazole Sodium (Protonix Inj) 40 mg IVP DAILY [facility] Last Admin: 06/20/17 11:12 Dose: 40 mg Physical Exam - Head Exam Head Exam: ATRAUMATIC - Eye Exam Eye Exam: Normal appearance - ENT Exam ENT Exam: Mucous Membranes Dry - Respiratory Exam Respiratory Exam: NORMAL BREATHING PATTERN - Cardiovascular Exam Cardiovascular Exam: +S1, +S2 - GI/Abdominal Exam GI & Abdominal Exam: Normal Bowel Sounds - Extremities Exam Extremities exam: Positive for: normal inspection - Neurological Exam Neurological exam: Oriented x3 - Psychiatric Exam Psychiatric exam: Normal Affect, Normal Mood - Skin Skin Exam: Warm Results - Vital Signs Recent Vital Signs: Last Vital Signs Temp 97.8 F 06/20/17 15:00 Pulse 57 L 06/20/17 15:00 Resp 20 06/20/17 15:00 BP 167/82 H 06/20/17 15:00 Pulse Ox 99 06/20/17 15:00 - Labs Result Diagrams: 06/20/17 07:52 06/20/17 07:52 Labs: Laboratory Results - last 24 hr 06/19/17 06/19/17 06/20/17 19:26 19:56 02:04 WBC RBC Hgb Hct MCV MCH MCHC RDW Plt Count MPV Neut % (Auto) Lymph % (Auto) [place] % (Auto) Eos % (Auto) Baso % (Auto) Neut # Lymph # [place] # Eos # Baso # Differential Comment Sodium Potassium Chloride Carbon Dioxide Anion Gap BUN Creatinine Est GFR ( Amer) Est GFR (Non-Af Amer) POC Glucose (mg/dL) 133 H Random Glucose Calcium Total Bilirubin AST ALT Alkaline Phosphatase Total Protein Albumin Globulin Albumin/Globulin Ratio Urine Color Straw Urine Clarity Clear Urine pH 7.0 Ur Specific [place] 1.009 Urine Protein Negative Urine Glucose (UA) 2+ H Urine Ketones Negative Urine Blood 1+ H Urine Nitrate Negative Urine Bilirubin Negative Urine Urobilinogen Normal Ur Leukocyte Esterase Neg Blood Type A POSITIVE Antibody Screen Negative 06/20/17 06/20/17 06/20/17 07:00 07:52 07:52 WBC 4.4 L RBC 3.49 L Hgb 9.8 L D Hct 28.3 L MCV 81.2 MCH 28.1 MCHC 34.6 RDW 22.6 H Plt Count 107 L D MPV 8.2 Neut % (Auto) 63.4 Lymph % (Auto) 19.8 L [place] % (Auto) 12.6 H Eos % (Auto) 2.8 Baso % (Auto) 1.4 Neut # 2.8 Lymph # 0.9 L [place] # 0.6 Eos # 0.1 Baso # 0.1 Differential Comment Sodium 140 Potassium 3.3 L Chloride 102 Carbon Dioxide 21 L Anion Gap 20 BUN 62 H Creatinine 5.4 H Est GFR ( Amer) 13 Est GFR (Non-Af Amer) 10 POC Glucose (mg/dL) 107 Random Glucose 95 Calcium 8.2 L Total Bilirubin 1.2 AST 17 ALT 24 Alkaline Phosphatase 44 Total Protein 6.5 Albumin 3.4 L Globulin 3.1 Albumin/Globulin Ratio 1.1 Urine Color Urine Clarity Urine pH Ur Specific [place] Urine Protein Urine Glucose (UA) Urine Ketones Urine Blood Urine Nitrate Urine Bilirubin Urine Urobilinogen Ur Leukocyte Esterase Blood Type Antibody Screen 06/20/17 06/20/17 11:24 16:18 WBC RBC Hgb Hct MCV MCH MCHC RDW Plt Count MPV Neut % (Auto) Lymph % (Auto) [place] % (Auto) Eos % (Auto) Baso % (Auto) Neut # Lymph # [place] # Eos # Baso # Differential Comment Sodium Potassium Chloride Carbon Dioxide Anion Gap BUN Creatinine Est GFR ( Amer) Est GFR (Non-Af Amer) POC Glucose (mg/dL) 164 H 179 H Random Glucose Calcium Total Bilirubin AST ALT Alkaline Phosphatase Total Protein Albumin Globulin Albumin/Globulin Ratio Urine Color Urine Clarity Urine pH Ur Specific [place] Urine Protein Urine Glucose (UA) Urine Ketones Urine Blood Urine Nitrate Urine Bilirubin Urine Urobilinogen Ur Leukocyte Esterase Blood Type Antibody Screen Assessment & Plan (1) Severe anemia Assessment and Plan: secondary to chemotherapy agree with transfusion support will evaluate iron, b12, folate stores Status: Acute (2) Renal failure Assessment and Plan: recommend nephrology evaluation if no improvement with hydration pt has been receiving cisplatin in his chemotherapy regimen; started in 04/2017 Status: Acute (3) Pancytopenia Assessment and Plan: secondary to chemotherapy Status: Acute (4) Gastric adenocarcinoma Assessment and Plan: responding to neoadjuvant chemotherapy for resection in 08/2017 Thank you for this interesting consult. Status: Acute
[2017-06-21 07:22] LABS: MEAN PLATELET VOLUME 8.2 fL (7.2-11.7)
[2017-06-21 07:33] LABS: POTASSIUM 3.4 mmol/L (3.6-5.2)
[2017-06-21 07:35] LABS: HEMATOCRIT 29.5 % (35.0-51.0); MEAN CELL VOLUME 82.1 fL (80.0-94.0); MEAN CORPUSCULAR HEMOGLOBIN 27.6 pg (27.0-31.0); MEAN CORPUSCULAR HGB CONC 33.6 g/dL (33.0-37.0); RED CELL DISTRIBUTION WIDTH 22.8 % (11.5-14.5)
[2017-06-21 07:36] LABS: CALCIUM 8.1 mg/dl (8.6-10.4)
[2017-06-21] MEDS: (Novolin R) Insulin Human Regular 100 units/ml vial SC SCH ×4 (08:27→21:59)
[2017-06-21 08:43] LABS: FOLATE 9.2 ng/mL
[2017-06-21] MEDS ORDERED: Metoprolol Succinate 100 mg XL Tab PO SCH (10:00)
[2017-06-21] MEDS: Metoprolol Succinate 100 mg XL Tab PO SCH (10:26)
[2017-06-21] MEDS ORDERED: Potassium Chloride 20 mEq ER Tab PO ONE (11:30)
--- NOTE | 2017-06-21 11:31 | CP.PCM.PN ---
Subjective - Date & Time of Evaluation Date of Evaluation: 06/21/17 Time of Evaluation: 11:29 - Subjective Subjective: feels better no pain, no nausea Objective - Vital Signs/Intake and Output Vital Signs (last 24 hours): Temp Pulse Resp BP Pulse Ox 98.9 F 63 20 156/91 H 98 06/20/17 23:16 06/20/17 23:16 06/20/17 23:16 06/20/17 23:16 06/20/17 23:16 Intake and Output: 06/21/17 06/21/17 06:59 18:59 Intake Total 800 800 Balance 800 800 - Medications Medications: Current Medications Acetaminophen (Tylenol 325mg Tab) 650 mg PO Q6H PRN PRN Reason: Pain, Mild (1-3) Amlodipine Besylate (Norvasc) 10 mg PO DAILY [facility] Last Admin: 06/21/17 10:26 Dose: 10 mg Hydrochlorothiazide (Hydrodiuril) 25 mg PO DAILY [facility] Last Admin: 06/21/17 10:26 Dose: 25 mg Sodium Chloride (Sodium Chloride 0.9%) 1,000 mls @ 100 mls/hr IV .Q10H [facility] Last Admin: 06/20/17 15:47 Dose: 100 mls/hr Insulin Human Regular (Novolin R) 0 unit SC ACHS [facility] PRN Reason: Protocol Last Admin: 06/21/17 08:27 Dose: Not Given Isosorbide Mononitrate (Imdur Er) 30 mg PO DAILY [facility] Metoprolol Succinate (Toprol Xl) 200 mg PO DAILY [facility] Last Admin: 06/21/17 10:26 Dose: 200 mg Ondansetron HCl (Zofran Inj) 4 mg IVP Q4H PRN PRN Reason: Nausea/Vomiting Pantoprazole Sodium (Protonix Inj) 40 mg IVP DAILY [facility] Last Admin: 06/21/17 10:25 Dose: 40 mg Potassium Chloride (K-Dur 20 Meq Er Tab) 40 meq PO STAT [facility]A Stop: 06/21/17 11:27 - Labs Labs: 06/21/17 07:12 06/21/17 07:12 PT 11.7 SECONDS (9.7-12.2) 06/19/17 19:56 INR 1.0 06/19/17 19:56 APTT 62 SECONDS (21-34) H 06/19/17 19:56 - Constitutional Appears: No Acute Distress - Respiratory Exam Respiratory Exam: Clear to Ausculation Bilateral, NORMAL BREATHING PATTERN - Cardiovascular Exam Cardiovascular Exam: REGULAR RHYTHM. absent: Murmur - GI/Abdominal Exam GI & Abdominal Exam: Normal Bowel Sounds Assessment and Plan - Assessment and Plan (Free Text) Assessment: a 72 year old male with gastric adenocarcinoma came for anemia and renal failure s/p 2 units of pRBC transfusion hemoglobin was 9.9, not dropping further but mild pancytopenia low potassium of 3.4 creatinine dropped from 5.4 to 4.7 by intravenous hydration Plan: continue iv hydration as per oncology, renal consult potassium replacement
[2017-06-21] MEDS: Sodium Chloride 0.9% 1,000 ML IV SCH (21:58)
[2017-06-21 23:14] VITALS: TEMP 98.7
[2017-06-22] MEDS: (Novolin R) Insulin Human Regular 100 units/ml vial SC SCH (07:45)
--- NOTE | 2017-06-22 07:45 | CP.PCM.PN ---
Subjective - Date & Time of Evaluation Date of Evaluation: 06/22/17 Time of Evaluation: 07:43 - Subjective Subjective: no pain no nausea sitting on a chair Objective - Vital Signs/Intake and Output Vital Signs (last 24 hours): Temp Pulse Resp BP Pulse Ox 98.7 F 60 20 141/76 98 06/21/17 23:13 06/21/17 23:13 06/21/17 23:13 06/21/17 23:13 06/21/17 23:13 Intake and Output: 06/22/17 06/22/17 06:59 18:59 Intake Total 960 Output Total 400 Balance 560 - Medications Medications: Current Medications Acetaminophen (Tylenol 325mg Tab) 650 mg PO Q6H PRN PRN Reason: Pain, Mild (1-3) Amlodipine Besylate (Norvasc) 10 mg PO DAILY [facility] Last Admin: 06/21/17 10:26 Dose: 10 mg Hydrochlorothiazide (Hydrodiuril) 25 mg PO DAILY [facility] Last Admin: 06/21/17 10:26 Dose: 25 mg Sodium Chloride (Sodium Chloride 0.9%) 1,000 mls @ 100 mls/hr IV .Q10H [facility] Last Admin: 06/21/17 21:58 Dose: 100 mls/hr Insulin Human Regular (Novolin R) 0 unit SC ACHS [facility] PRN Reason: Protocol Last Admin: 06/21/17 21:59 Dose: Not Given Isosorbide Mononitrate (Imdur Er) 30 mg PO DAILY [facility] Last Admin: 06/21/17 11:50 Dose: 30 mg Metoprolol Succinate (Toprol Xl) 200 mg PO DAILY [facility] Last Admin: 06/21/17 10:26 Dose: 200 mg Ondansetron HCl (Zofran Inj) 4 mg IVP Q4H PRN PRN Reason: Nausea/Vomiting Pantoprazole Sodium (Protonix Inj) 40 mg IVP DAILY [facility] Last Admin: 06/21/17 10:25 Dose: 40 mg - Labs Labs: 06/21/17 07:12 06/21/17 07:12 PT 11.7 SECONDS (9.7-12.2) 06/19/17 19:56 INR 1.0 06/19/17 19:56 APTT 62 SECONDS (21-34) H 06/19/17 19:56 - Constitutional Appears: No Acute Distress - Respiratory Exam Respiratory Exam: Clear to Ausculation Bilateral, NORMAL BREATHING PATTERN - Cardiovascular Exam Cardiovascular Exam: REGULAR RHYTHM. absent: Murmur Assessment and Plan - Assessment and Plan (Free Text) Assessment: advanced stomach cancer pancytopenia s/p blood transfusion renal failure, acute Plan: will check labs this AM continue iv fluid follow up with oncology, nephrology
[2017-06-22 07:50] LABS: BASO # 0.1 K/uL (0.0-0.2); BASO % 2.2 % (0.0-2.0); EOS # 0.2 K/uL (0.0-0.7); EOS % 6.5 % (0.0-4.0); HEMATOCRIT 28.5 % (35.0-51.0); LYMPH # 0.7 K/uL (1.0-4.3); LYMPH % 25.8 % (20.0-40.0); MEAN CORPUSCULAR HEMOGLOBIN 28.4 pg (27.0-31.0); MEAN CORPUSCULAR HGB CONC 34.6 g/dL (33.0-37.0); MEAN PLATELET VOLUME 8.2 fL (7.2-11.7); MONO # 0.6 K/uL (0.0-0.8); MONO % 19.3 % (0.0-10.0); NRBC % 0.3 % (0.0-2.0); RED CELL DISTRIBUTION WIDTH 22.6 % (11.5-14.5); WHITE BLOOD COUNT 2.9 K/uL (4.8-10.8)
[2017-06-22 07:56] VITALS: BP 142/80; PULSE 61; O2SAT 99
[2017-06-22 07:58] LABS: POTASSIUM 3.7 mmol/L (3.6-5.2)
[2017-06-22 08:00] LABS: ALB/GLOB RATIO 1.1 (1.0-2.1); BILIRUBIN,TOTAL 1.3 mg/dL (0.2-1.3); TOTAL PROTEIN 6.4 g/dL (6.3-8.3)
[2017-06-22 08:01] LABS: CALCIUM 7.9 mg/dl (8.6-10.4)
--- NOTE | 2017-06-22 08:24 | CP.PCM.CON ---
History of Present Illness - History of Present Illness History of Present Illness: This patient who is 72 years of age I was called to see him for abnormal kidney in history of hypertension, mild diabetes, and advanced stomach cancer Patient was receiving chemotherapy And through the course of the hospital since he was admitted creatinine has been coming down Review of Systems - Constitutional Constitutional: As Per HPI - EENT Eyes: As Per HPI - Cardiovascular Cardiovascular: absent: Chest Pain, Dyspnea, Edema, Pedal Edema - Respiratory Respiratory: absent: Cough, Chest Congestion - Gastrointestinal Gastrointestinal: Abdominal Pain. absent: Loose Stools, Vomiting - Genitourinary Genitourinary: Nocturia - Musculoskeletal Musculoskeletal: Muscle Weakness - Neurological Neurological: As Per HPI - Psychiatric Psychiatric: As Per HPI - Endocrine Endocrine: As Per HPI Past Patient History - Past Medical History & Family History Past Medical History?: Yes - Past Social History Smoking Status: Never Smoked - CARDIAC Hx Hypercholesterolemia: Yes Hx Hypertension: Yes - PULMONARY Hx Respiratory Disorders: No - NEUROLOGICAL Hx Neurological Disorder: No - HEENT Hx HEENT Problems: No - RENAL Hx Chronic Kidney Disease: No - ENDOCRINE/METABOLIC Hx Endocrine Disorders: Yes Hx Diabetes Mellitus Type 2: Yes - HEMATOLOGICAL/ONCOLOGICAL Hx Anemia: Yes - MUSCULOSKELETAL/RHEUMATOLOGICAL Hx Musculoskeletal Disorders: Yes Hx Falls: Yes - GASTROINTESTINAL Hx Gastrointestinal Disorders: Yes Other/Comment: STOMACH CANCER - GENITOURINARY/GYNECOLOGICAL Hx Genitourinary Disorders: Yes Hx Prostate Problems: Yes - PSYCHIATRIC Hx Depression: Yes Hx Substance Use: No - SURGICAL HISTORY Hx Surgeries: Yes - ANESTHESIA Hx Anesthesia: Yes Hx Anesthesia Reactions: No Hx Malignant Hyperthermia: No Meds Allergies/Adverse Reactions: Allergies Allergy/AdvReac Type Severity Reaction Status Date / Time No Known Allergies Allergy Verified 06/19/17 18:55 - Medications Medications: Current Medications Acetaminophen (Tylenol 325mg Tab) 650 mg PO Q6H PRN PRN Reason: Pain, Mild (1-3) Amlodipine Besylate (Norvasc) 10 mg PO DAILY [facility] Last Admin: 06/21/17 10:26 Dose: 10 mg Hydrochlorothiazide (Hydrodiuril) 25 mg PO DAILY [facility] Last Admin: 06/21/17 10:26 Dose: 25 mg Sodium Chloride (Sodium Chloride 0.9%) 1,000 mls @ 100 mls/hr IV .Q10H [facility] Last Admin: 06/21/17 21:58 Dose: 100 mls/hr Insulin Human Regular (Novolin R) 0 unit SC ACHS [facility] PRN Reason: Protocol Last Admin: 06/21/17 21:59 Dose: Not Given Isosorbide Mononitrate (Imdur Er) 30 mg PO DAILY [facility] Last Admin: 06/21/17 11:50 Dose: 30 mg Metoprolol Succinate (Toprol Xl) 200 mg PO DAILY [facility] Last Admin: 06/21/17 10:26 Dose: 200 mg Ondansetron HCl (Zofran Inj) 4 mg IVP Q4H PRN PRN Reason: Nausea/Vomiting Pantoprazole Sodium (Protonix Inj) 40 mg IVP DAILY [facility] Last Admin: 06/21/17 10:25 Dose: 40 mg Physical Exam - Constitutional Appears: No Acute Distress - ENT Exam ENT Exam: Mucous Membranes Moist - Respiratory Exam Respiratory Exam: NORMAL BREATHING PATTERN. absent: Chest Wall Tenderness - Cardiovascular Exam Cardiovascular Exam: absent: JVD, Rubs - GI/Abdominal Exam GI & Abdominal Exam: Normal Bowel Sounds - Extremities Exam Extremities exam: Negative for: calf tenderness - Back Exam Back exam: absent: CVA tenderness (L), CVA tenderness (R) - Neurological Exam Neurological exam: Alert Results - Vital Signs Recent Vital Signs: Last Vital Signs Temp 98.7 F 06/22/17 07:54 Pulse 61 06/22/17 07:54 Resp 20 06/22/17 07:54 BP 142/80 06/22/17 07:54 Pulse Ox 99 06/22/17 07:54 - Labs Result Diagrams: 06/22/17 07:42 06/22/17 07:42 Labs: Laboratory Results - last 24 hr 06/21/17 06/21/17 06/21/17 07:12 11:55 16:14 WBC RBC Hgb Hct MCV MCH MCHC RDW Plt Count MPV Neut % (Auto) Lymph % (Auto) [place] % (Auto) Eos % (Auto) Baso % (Auto) Neut # Lymph # [place] # Eos # Baso # Sodium Potassium Chloride Carbon Dioxide Anion Gap BUN Creatinine Est GFR ( Amer) Est GFR (Non-Af Amer) POC Glucose (mg/dL) 156 H 156 H Random Glucose Calcium Ferritin 194.0 Total Bilirubin AST ALT Alkaline Phosphatase Total Protein Albumin Globulin Albumin/Globulin Ratio Vitamin B12 846 Folate 9.2 06/21/17 06/22/17 06/22/17 21:32 07:15 07:42 WBC 2.9 L RBC 3.48 L Hgb 9.9 L Hct 28.5 L MCV 82.0 MCH 28.4 MCHC 34.6 RDW 22.6 H Plt Count 63 L MPV 8.2 Neut % (Auto) 46.2 L Lymph % (Auto) 25.8 [place] % (Auto) 19.3 H Eos % (Auto) 6.5 H Baso % (Auto) 2.2 H Neut # 1.3 L Lymph # 0.7 L [place] # 0.6 Eos # 0.2 Baso # 0.1 Sodium Potassium Chloride Carbon Dioxide Anion Gap BUN Creatinine Est GFR ( Amer) Est GFR (Non-Af Amer) POC Glucose (mg/dL) 129 H 136 H Random Glucose Calcium Ferritin Total Bilirubin AST ALT Alkaline Phosphatase Total Protein Albumin Globulin Albumin/Globulin Ratio Vitamin B12 Folate 06/22/17 07:42 WBC RBC Hgb Hct MCV MCH MCHC RDW Plt Count MPV Neut % (Auto) Lymph % (Auto) [place] % (Auto) Eos % (Auto) Baso % (Auto) Neut # Lymph # [place] # Eos # Baso # Sodium 136 Potassium 3.7 Chloride 104 Carbon Dioxide 19 L Anion Gap 17 BUN 63 H Creatinine 5.1 H Est GFR ( Amer) 14 Est GFR (Non-Af Amer) 11 POC Glucose (mg/dL) Random Glucose 114 H Calcium 7.9 L Ferritin Total Bilirubin 1.3 AST 18 ALT 22 Alkaline Phosphatase 49 Total Protein 6.4 Albumin 3.4 L Globulin 3.0 Albumin/Globulin Ratio 1.1 Vitamin B12 Folate Assessment & Plan (1) Acute kidney injury Assessment and Plan: Patient appeared to have acute kidney injury etiology is not clear whether something to do with the chemotherapy perhaps His serum creatinine baseline in the month of March was less than one My recommendation Hydration D5 with normal saline Spot urine for sodium osmolality and creatinine Ultrasound of the kidney And keep monitoring Patient has advanced gastric CA on chemotherapy Status: Acute (2) Gastric mass Status: Acute
[2017-06-22] MEDS: Sodium Chloride 0.9% 1,000 ML IV SCH (08:47)
[2017-06-22] MEDS: Metoprolol Succinate 100 mg XL Tab PO SCH (09:01)
[2017-06-22] MEDS ORDERED: Influenza Vaccine 60 mcg/0.5 mL SYR (4YR UP) IM ONE (10:00)
[2017-06-22] MEDS ORDERED: Potassium Chloride 20 mEq ER Tab PO SCH (10:00)
== END 2017-06-22 11:52 | disposition home or self-care (01) | DRG 809 ==
LOC: C.ER 18:27 → C.9E 20:22 → C.3T 21:33
PROVIDERS: ADMIT Internal Medicine; ATTEND Internal Medicine
PROC: 30233N1 Transfusion of Nonautologous Red Blood Cells into Peripheral Vein, Percutaneous Approach (ICD-10-PCS; principal; 2017-06-21)
DX: D61.810 Antineoplastic chemotherapy induced pancytopenia (principal); N17.9 Acute kidney failure, unspecified; C16.9 Malignant neoplasm of stomach, unspecified; D64.81 Anemia due to antineoplastic chemotherapy; E11.9 Type 2 diabetes mellitus without complications; I10 Essential (primary) hypertension; E78.00 Pure hypercholesterolemia, unspecified; F17.210 Nicotine dependence, cigarettes, uncomplicated; T45.1X5A Adverse effect of antineoplastic and immunosuppressive drugs, initial encounter